=== PATIENT | male | born 1990 | race Caucasian/White ===

== ENCOUNTER 2017-06-11 23:42 | Inpatient (IN) ==
--- NOTE | 2017-06-12 00:01 | Emergency Department Note ---
Disposition Clinical Impression: Atrial fibrillation with RVR, Chest pain, Light headedness, Hypotension, Elevated troponin I level Disposition: Admitted As Inpatient Condition: Fair General Adult HPI - General Chief complaint: ED Chest Pain Stated complaint: CP/bradycardia Time Seen by Provider: 06/12/17 00:00 Source: patient Limitations: no limitations Nursing Notes Reviewed: Yes Vital Signs Reviewed: Yes - History of Present Illness Pain Scale: 7 - Related Data Home Medications Medication Instructions Recorded Confirmed Metoprolol [Lopressor] 50 mg PO BID 06/12/17 06/12/17 Allergies Allergy/AdvReac Type Severity Reaction Status Date / Time No Known Allergies Allergy Verified 10/13/16 10:50 Past Medical History - Past Medical History Medical history: Reports: no medical history Surgical history: Reports: no surgical history Psychiatric history: Reports: no psych history - Social History Smoking Status: Current every day smoker Smokeless Tobacco Status: No Alcohol use: Reports: occasionally Drug use: Reports: none Physical Exam - General Limitations: no limitations General appearance: alert Course - Reevaluation(s) Reevaluation #1: Saw patient with Dr. Alvarez. This is a 26 year-old male with history of heart problem (?LVH) who presents with palpitations and central chest pressure that began when he had to sprint at work this afternoon at 14:15. Since then, he has continued to have chest pressure, "fluttering" in his chest, and exertional dyspnea. He underwent cardiac workup a couple of months ago, including cardiac echo and cardiac CT, and he was started on metoprolol. He denies any history of AF. On exam, patient is comfortable-appearing. Heart irreg irreg, BP stable. Plan chest pain workup, diltiazem for rate control, consult cardiology. Time: 00:30 Reevaluation #2: Elevated troponin noted. Will consult cardiology. Time: 01:50 Vital Signs Temperature 97.3 F L 06/11/17 23:45 Pulse Rate 140 06/11/17 23:45 Respiratory Rate 20 06/11/17 23:45 Blood Pressure 122/87 06/11/17 23:45 O2 Sat by Pulse Oximetry 97 06/11/17 23:45 Temperature 98.4 F 06/12/17 05:05 Pulse Rate 104 06/12/17 05:05 Respiratory Rate 19 06/12/17 05:05 Blood Pressure 103/92 06/12/17 05:05 O2 Sat by Pulse Oximetry 97 06/12/17 05:05 Oxygen Delivery Oxygen Delivery Room Air Medical Decision Making - Lab Data Lab results reviewed: Yes I reviewed the patient's lab results. Result diagrams: 06/12/17 00:11 06/12/17 00:00 Lab Results 06/12/17 06/12/17 06/12/17 Range/Units 00:00 00:01 00:11 WBC 16.5 H (4.3-11.1) K/mcL RBC 5.09 (4.19-5.50) M/mcL Hgb 15.6 (12.9-16.9) g/dL Hct 43.6 (37.5-50.1) % MCV 85.7 (83.0-100.0) fL MCH 30.6 (28.0-33.3) pg MCHC 35.8 H (31.6-35.5) g/dL RDW 12.2 (11.5-14.5) % Plt Count 220 (140-400) K/mcL MPV 10.7 (9.4-12.4) fL Immature Gran % 0.3 (0-4) % Seg Neutrophils % 61.8 % Lymphocytes % 29.8 % Monocytes % 6.2 % Eosinophils % 1.4 % Basophils % 0.5 % Neutrophils # 10.2 H (1.6-8.9) K/mcL Lymphocytes # 4.9 H (0.6-4.6) K/mcL Monocytes # 1.0 (0.0-1.3) K/mcL Eosinophils # 0.2 (0.0-0.6) K/mcL Basophils # 0.1 (0.0-0.2) K/mcL Immature Plt Fraction 7.9 H (1.1-6.1) % PT 11.2 (9.4-12.1) Seconds INR 1.0 APTT 31.1 (26.0-36.0) Seconds Sodium 137 (136-145) mEq/L Potassium 3.8 (3.5-5.1) mEq/L Chloride 106 (98-107) mEq/L Carbon Dioxide 21 L (23-29) mEq/L BUN 20 (6-20) mg/dL Creatinine 1.22 (0.70-1.30) mg/dL Est GFR ( Amer) > 60 (> 60) Est GFR (Non-Af Amer) > 60 (> 60) BUN/Creatinine Ratio 16 (6-26) Glucose 110 H (70-105) mg/dL Calculated Osmolality 287 (280-300) Calcium 9.6 (8.6-10.3) mg/dL Troponin I 1.30 H* (< 0.04) ng/mL TSH 4.862 (0.340-5.600) mcIU/mL Urine Opiates Screen (Swegmo=270) ng/mL Ur Barbiturates Screen (Ajheqo=809) ng/mL Ur Phencyclidine Scrn (Cutoff=25) ng/mL Ur Amphetamines Screen (Kwibbm=7721) ng/mL U Benzodiazepines Scrn (Yblnvi=470) ng/mL Urine Cocaine Screen (Cutoff= 300) ng/mL U Marijuana (THC) Screen (Cutoff = 50) ng/mL 06/12/17 Range/Units 01:02 WBC (4.3-11.1) K/mcL RBC (4.19-5.50) M/mcL Hgb (12.9-16.9) g/dL Hct (37.5-50.1) % MCV (83.0-100.0) fL MCH (28.0-33.3) pg MCHC (31.6-35.5) g/dL RDW (11.5-14.5) % Plt Count (140-400) K/mcL MPV (9.4-12.4) fL Immature Gran % (0-4) % Seg Neutrophils % % Lymphocytes % % Monocytes % % Eosinophils % % Basophils % % Neutrophils # (1.6-8.9) K/mcL Lymphocytes # (0.6-4.6) K/mcL Monocytes # (0.0-1.3) K/mcL Eosinophils # (0.0-0.6) K/mcL Basophils # (0.0-0.2) K/mcL Immature Plt Fraction (1.1-6.1) % PT (9.4-12.1) Seconds INR APTT (26.0-36.0) Seconds Sodium (136-145) mEq/L Potassium (3.5-5.1) mEq/L Chloride (98-107) mEq/L Carbon Dioxide (23-29) mEq/L BUN (6-20) mg/dL Creatinine (0.70-1.30) mg/dL Est GFR ( Amer) (> 60) Est GFR (Non-Af Amer) (> 60) BUN/Creatinine Ratio (6-26) Glucose (70-105) mg/dL Calculated Osmolality (280-300) Calcium (8.6-10.3) mg/dL Troponin I (< 0.04) ng/mL TSH (0.340-5.600) mcIU/mL Urine Opiates Screen Negative (Mdgzjt=139) ng/mL Ur Barbiturates Screen Negative (Bwvlyk=122) ng/mL Ur Phencyclidine Scrn Negative (Cutoff=25) ng/mL Ur Amphetamines Screen Negative (Knejzt=5627) ng/mL U Benzodiazepines Scrn Negative (Gwqpds=519) ng/mL Urine Cocaine Screen Negative (Cutoff= 300) ng/mL U Marijuana (THC) Screen Negative (Cutoff = 50) ng/mL - Radiology Data Radiology results reviewed: Yes I reviewed the patient's radiology results. CXR IMPRESSION: No acute process. - EKG Data EKG #1 EKG attestation: Yes I reviewed and interpreted this EKG. EKG results narrative: AF/RVR at 131.
[2017-06-12] MEDS ORDERED: 0.9 % Sodium Chloride 1,000 ML IVC ONE ×3 (00:07→04:39)
[2017-06-12] MEDS ORDERED: Aspirin 81 MG TAB.CHEW PO STA (00:09)
[2017-06-12 00:14] LABS: Basophils # 0.1 K/mcL (0.0-0.2); Basophils % 0.5 %; Eosinophils # 0.2 K/mcL (0.0-0.6); Eosinophils % 1.4 %; Hematocrit 43.6 % (37.5-50.1); Hemoglobin 15.6 g/dL (12.9-16.9); Immature Granulocytes % 0.3 % (0-4); Immature Platelets 7.9 % (1.1-6.1); Lymphocytes # 4.9 K/mcL (0.6-4.6); Lymphocytes % 29.8 %; Mean Corpuscular HGB Conc 35.8 g/dL (31.6-35.5); Mean Corpuscular Hemoglobin 30.6 pg (28.0-33.3); Mean Corpuscular Volume 85.7 fL (83.0-100.0); Mean Platelet Volume 10.7 fL (9.4-12.4); Monocytes % 6.2 %; Neutrophils # 10.2 K/mcL (1.6-8.9); Platelet Count 220 K/mcL (140-400); Red Blood Count 5.09 M/mcL (4.19-5.50); Red Cell Distribution Width 12.2 % (11.5-14.5); Segmented Neutrophils % 61.8 %
[2017-06-12 00:19] LABS: Prothrombin Time 11.2 Seconds (9.4-12.1)
[2017-06-12 00:22] LABS: Activated Partial Thrombo Time 31.1 Seconds (26.0-36.0)
--- NOTE | 2017-06-12 00:36 | Emergency Department Note ---
Disposition Forms: ED Satisfaction Letter General Adult HPI - General Chief complaint: ED Chest Pain Stated complaint: CP/bradycardia Time Seen by Provider: 06/12/17 00:00 Source: patient Limitations: no limitations Nursing Notes Reviewed: Yes - History of Present Illness Pain Scale: 7 - Related Data Previous Rx's Medication Instructions Recorded Ketoconazole 2% CRM [Nizoral Cream] 1 appl TP BID #2 tube 10/13/16 Permethrin CRM [Elimite] 1 appl TP ONCE #1 tube 10/13/16 Allergies Allergy/AdvReac Type Severity Reaction Status Date / Time No Known Allergies Allergy Verified 10/13/16 10:50 Past Medical History - Past Medical History Medical history: Reports: no medical history Surgical history: Reports: no surgical history Psychiatric history: Reports: no psych history - Social History Smoking Status: Current every day smoker Smokeless Tobacco Status: No Alcohol use: Reports: occasionally Drug use: Reports: none Physical Exam - General Limitations: no limitations General appearance: alert Course - Reevaluation(s) Reevaluation #1: Saw patient with Dr. Alvarez. This is a 26 year-old male with history of heart problem (?LVH) who presents with palpitations and central chest pressure that began when he had to sprint at work this Time: 00:34 Vital Signs Temperature 97.3 F L 06/11/17 23:45 Pulse Rate 140 06/11/17 23:45 Respiratory Rate 20 06/11/17 23:45 Blood Pressure 122/87 06/11/17 23:45 O2 Sat by Pulse Oximetry 97 06/11/17 23:45 Temperature 97.3 F L 06/11/17 23:45 Pulse Rate 140 06/11/17 23:45 Respiratory Rate 20 06/11/17 23:45 Blood Pressure 122/87 06/11/17 23:45 O2 Sat by Pulse Oximetry 97 06/11/17 23:45 Oxygen Delivery Oxygen Delivery Room Air Medical Decision Making - Lab Data Result diagrams: 06/12/17 00:11 Lab Results 06/12/17 06/12/17 Range/Units 00:01 00:11 WBC 16.5 H (4.3-11.1) K/mcL RBC 5.09 (4.19-5.50) M/mcL Hgb 15.6 (12.9-16.9) g/dL Hct 43.6 (37.5-50.1) % MCV 85.7 (83.0-100.0) fL MCH 30.6 (28.0-33.3) pg MCHC 35.8 H (31.6-35.5) g/dL RDW 12.2 (11.5-14.5) % Plt Count 220 (140-400) K/mcL MPV 10.7 (9.4-12.4) fL Immature Gran % 0.3 (0-4) % Seg Neutrophils % 61.8 % Lymphocytes % 29.8 % Monocytes % 6.2 % Eosinophils % 1.4 % Basophils % 0.5 % Neutrophils # 10.2 H (1.6-8.9) K/mcL Lymphocytes # 4.9 H (0.6-4.6) K/mcL Monocytes # 1.0 (0.0-1.3) K/mcL Eosinophils # 0.2 (0.0-0.6) K/mcL Basophils # 0.1 (0.0-0.2) K/mcL Immature Plt Fraction 7.9 H (1.1-6.1) % PT 11.2 (9.4-12.1) Seconds INR 1.0 APTT 31.1 (26.0-36.0) Seconds
--- NOTE | 2017-06-12 01:14 | Emergency Department Note ---
Disposition Clinical Impression: Atrial fibrillation with RVR, Light headedness, Elevated troponin I level Chest pain Qualifiers: Chest pain type: unspecified Qualified Code(s): R07.9 - Chest pain, unspecified Hypotension Qualifiers: Hypotension type: unspecified hypotension type Qualified Code(s): I95.9 - Hypotension, unspecified Disposition: Admitted As Inpatient Condition: Fair [facility]: [facility]Primary Care Provider[facility] - Forms: ED Satisfaction Letter Time of Disposition: 05:03 Chest Pain HPI - General Chief Complaint: ED Chest Pain Stated Complaint: CP/bradycardia Time Seen by Provider: 06/12/17 00:00 Source: patient Limitations: no limitations Vital Signs Reviewed: Yes Nursing Notes Reviewed: Yes - History of Present Illness HPI Narrative: 18-year-old male complains of mid substernal chest pressure with radiation to his left shoulder and neck that started approximately 1415 hrs. today while at work. 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 After running he states he started feeling lightheaded and felt like his heart was flip-flopping in his chest. Patient states the sensation continued to persist for several hours after which he came to the emergency department. Patient states pain is rated at a 7/10 in intensity. Constant in nature. Nothing has made it better. Activity makes it worse. Also complains of nausea. Patient states he sees Dr. Devine of cardiology for abnormal heart wall thickening metoprolol. Patient denies history of prior chest pain episode today. Severity scale (1-10): 7 - Related Data Home Medications Medication Instructions Recorded Confirmed Metoprolol [Lopressor] 50 mg PO BID 06/12/17 06/12/17 Allergies Allergy/AdvReac Type Severity Reaction Status Date / Time No Known Allergies Allergy Verified 10/13/16 10:50 All systems ED: reviewed and negative except as stated. Review of Systems: As Per HPI Constitutional: Reports: fever. Denies: chills, weakness Cardiovascular: Reports: chest pain, palpitations Respiratory: Reports: dyspnea. Denies: cough Gastrointestinal: Reports: nausea. Denies: abdominal pain, vomiting, diarrhea Neurological: Denies: headache Psychiatric: Denies: anxiety Endocrine: Reports: fatigue Chest Pain PMH - Past Medical History Medical history: Reports: no medical history Surgical history: Reports: no surgical history Psychiatric history: Reports: no psych history - Social History Smoking Status: Current every day smoker Alcohol use: Reports: occasionally Drug use: Reports: none Physical Exam Vital Signs Temperature 97.3 F L 06/11/17 23:45 Pulse Rate 140 06/11/17 23:45 Respiratory Rate 20 06/11/17 23:45 Blood Pressure 122/87 06/11/17 23:45 O2 Sat by Pulse Oximetry 97 06/11/17 23:45 Temperature 97.3 F L 06/11/17 23:45 Pulse Rate 140 06/11/17 23:45 Respiratory Rate 20 06/11/17 23:45 Blood Pressure 122/87 06/11/17 23:45 O2 Sat by Pulse Oximetry 97 06/11/17 23:45 Oxygen Delivery Oxygen Delivery Room Air CONSTITUTIONAL: Well-appearing; well-nourished; A&O X 3, in no apparent distress HEAD: Normocephalic; atraumatic EYES: PERRL, no scleral icterus NOSE: The nose is normal in appearance without rhinorrhea NECK: No JVD or distended neck veins RESP: Normal chest excursion with respiration; breath sounds clear and equal bilaterally; no wheezes, rhonchi, or rales CARD: Irregular rhythm, no rubs murmurs or gallops. ABD: Non-distended; non-tender, soft, without rigidity, rebound or guarding,no pulsatile mass CHEST: No pain with palpation SKIN: Normal for age and race; warm and dry without diaphoresis ; no apparent lesions EXTREMITIES: Pulses are 2 plus and equal times 4 extremities, no peripheral edema or calf muscle pain - General Limitations: no limitations General appearance: alert Course - Reevaluation(s) Reevaluation #1: Blood pressure recheck 104/85 after 1 L fluid. Another liter ordered. Since patient's blood pressure will appears that it may not tolerate Cardizem will switched to Lopressor 5 mg IV since patient is on metoprolol at home 50 mg twice a day. Time: 01:21 Reevaluation #2: Troponin resulted 1.30 Time: 01:41 Reevaluation #3: TSH normal. Ordered CTA chest to rule out PE with patient's new onset A. fib and elevated troponin of 1.3 patient is currently rate controlled for his A. fib. Heart rate currently between 80s and 10 9 bpm. Time: 02:17 - Consultations Consultation #1: Dr. Morgan of cardiology was consult it and updated on patient's condition. Recommends admission and they will see the patient in consult. Time: 02:36 Consultation #2: Dr. Quinteros of [facility] was called to update on the patient's status of new onset A. fib RVR. Merlin and was scheduled to have MRI of the heart performed for possible ablation. They recommended the patient be followed with cardiology here to assess coronaries given A. fib RVR and elevation of troponin 1.3. After which, patient can resume outpatient evaluation with MR for cardiac ablation. Time: 04:00 Vital Signs Temperature 97.3 F L 06/11/17 23:45 Pulse Rate 140 06/11/17 23:45 Respiratory Rate 20 06/11/17 23:45 Blood Pressure 122/87 06/11/17 23:45 O2 Sat by Pulse Oximetry 97 06/11/17 23:45 Temperature 97.3 F L 06/11/17 23:45 Pulse Rate 140 06/11/17 23:45 Respiratory Rate 20 06/11/17 23:45 Blood Pressure 122/87 06/11/17 23:45 O2 Sat by Pulse Oximetry 97 06/11/17 23:45 Oxygen Delivery Oxygen Delivery Room Air Chest Pain - MDM Narrative Medical decision making narrative: A. fib RVR with chest pain. A few RVR new-onset. Patient was borderline hypotensive and given fluid bolus liter that had no effect on the patient's blood pressure. Consider giving Cardizem gave her Lopressor 5 mg IV. Patient became rate controlled between 80s to 107 bpm. Patient's chest pain persisted along with symptoms of lightheadedness and shortness of breath so patient was sent for CTA of the chest to rule out PE. No PE was identified on CTA of the chest. No pneumonia seen on chest x-ray or CT. Heart score 5, and cardiology was consulted. I spoke to Dr. Morgan who recommends admission to medicine and they will see the patient in consult. Patient's currently rate controlled and pain-free 0/10. Patient agrees to treatment plan for inpatient treatment and cardiology follow-up. Dr. Kramer the hospitalist as accepted patient for admission to , patient is started on low-dose heparin. - Medical Records Echo taken 02/18/2017 Impressions: Per cardiology LVEF 60-65%. Moderate asymmetric septal hypertrophy. Normal left ventricular diastolic function. Normal right ventricular structure and function. 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 There is a resting LVOT obstruction, Max PG 22 mmHg. No pulmonary hypertension. Recommend clinical correlation. - Lab Data Lab results reviewed: Yes I reviewed the patient's lab results. Lab results narrative: Short CBC 06/12/17 Range/Units 00:11 WBC 16.5 H (4.3-11.1) K/mcL Hgb 15.6 (12.9-16.9) g/dL Hct 43.6 (37.5-50.1) % Plt Count 220 (140-400) K/mcL Neutrophils # 10.2 H (1.6-8.9) K/mcL BMP 06/12/17 Range/Units 00:00 Sodium 137 (136-145) mEq/L Potassium 3.8 (3.5-5.1) mEq/L Chloride 106 (98-107) mEq/L Carbon Dioxide 21 L (23-29) mEq/L BUN 20 (6-20) mg/dL Creatinine 1.22 (0.70-1.30) mg/dL Glucose 110 H (70-105) mg/dL Calcium 9.6 (8.6-10.3) mg/dL Cardiac Enzymes 06/12/17 Range/Units 00:00 Troponin I 1.30 H* (< 0.04) ng/mL Result diagrams: 06/12/17 00:11 06/12/17 00:00 Lab Results 06/12/17 06/12/17 06/12/17 Range/Units 00:00 00:01 00:11 WBC 16.5 H (4.3-11.1) K/mcL RBC 5.09 (4.19-5.50) M/mcL Hgb 15.6 (12.9-16.9) g/dL Hct 43.6 (37.5-50.1) % MCV 85.7 (83.0-100.0) fL MCH 30.6 (28.0-33.3) pg MCHC 35.8 H (31.6-35.5) g/dL RDW 12.2 (11.5-14.5) % Plt Count 220 (140-400) K/mcL MPV 10.7 (9.4-12.4) fL Immature Gran % 0.3 (0-4) % Seg Neutrophils % 61.8 % Lymphocytes % 29.8 % Monocytes % 6.2 % Eosinophils % 1.4 % Basophils % 0.5 % Neutrophils # 10.2 H (1.6-8.9) K/mcL Lymphocytes # 4.9 H (0.6-4.6) K/mcL Monocytes # 1.0 (0.0-1.3) K/mcL Eosinophils # 0.2 (0.0-0.6) K/mcL Basophils # 0.1 (0.0-0.2) K/mcL Immature Plt Fraction 7.9 H (1.1-6.1) % PT 11.2 (9.4-12.1) Seconds INR 1.0 APTT 31.1 (26.0-36.0) Seconds Sodium 137 (136-145) mEq/L Potassium 3.8 (3.5-5.1) mEq/L Chloride 106 (98-107) mEq/L Carbon Dioxide 21 L (23-29) mEq/L BUN 20 (6-20) mg/dL Creatinine 1.22 (0.70-1.30) mg/dL Est GFR ( Amer) > 60 (> 60) Est GFR (Non-Af Amer) > 60 (> 60) BUN/Creatinine Ratio 16 (6-26) Glucose 110 H (70-105) mg/dL Calculated Osmolality 287 (280-300) Calcium 9.6 (8.6-10.3) mg/dL Troponin I 1.30 H* (< 0.04) ng/mL TSH 4.862 (0.340-5.600) mcIU/mL Urine Opiates Screen (Hwfwjd=792) ng/mL Ur Barbiturates Screen (Xcsgco=776) ng/mL Ur Phencyclidine Scrn (Cutoff=25) ng/mL Ur Amphetamines Screen (Aorodu=2884) ng/mL U Benzodiazepines Scrn (Ppdbbl=422) ng/mL Urine Cocaine Screen (Cutoff= 300) ng/mL U Marijuana (THC) Screen (Cutoff = 50) ng/mL 06/12/17 Range/Units 01:02 WBC (4.3-11.1) K/mcL RBC (4.19-5.50) M/mcL Hgb (12.9-16.9) g/dL Hct (37.5-50.1) % MCV (83.0-100.0) fL MCH (28.0-33.3) pg MCHC (31.6-35.5) g/dL RDW (11.5-14.5) % Plt Count (140-400) K/mcL MPV (9.4-12.4) fL Immature Gran % (0-4) % Seg Neutrophils % % Lymphocytes % % Monocytes % % Eosinophils % % Basophils % % Neutrophils # (1.6-8.9) K/mcL Lymphocytes # (0.6-4.6) K/mcL Monocytes # (0.0-1.3) K/mcL Eosinophils # (0.0-0.6) K/mcL Basophils # (0.0-0.2) K/mcL Immature Plt Fraction (1.1-6.1) % PT (9.4-12.1) Seconds INR APTT (26.0-36.0) Seconds Sodium (136-145) mEq/L Potassium (3.5-5.1) mEq/L Chloride (98-107) mEq/L Carbon Dioxide (23-29) mEq/L BUN (6-20) mg/dL Creatinine (0.70-1.30) mg/dL Est GFR ( Amer) (> 60) Est GFR (Non-Af Amer) (> 60) BUN/Creatinine Ratio (6-26) Glucose (70-105) mg/dL Calculated Osmolality (280-300) Calcium (8.6-10.3) mg/dL Troponin I (< 0.04) ng/mL TSH (0.340-5.600) mcIU/mL Urine Opiates Screen Negative (Nhjiix=029) ng/mL Ur Barbiturates Screen Negative (Zrvqmr=394) ng/mL Ur Phencyclidine Scrn Negative (Cutoff=25) ng/mL Ur Amphetamines Screen Negative (Nehtgl=9540) ng/mL U Benzodiazepines Scrn Negative (Zjdobv=174) ng/mL Urine Cocaine Screen Negative (Cutoff= 300) ng/mL U Marijuana (THC) Screen Negative (Cutoff = 50) ng/mL - Radiology Data Radiology results reviewed: Yes I reviewed the patient's radiology results. Chest X-Ray 06/12/17 00:01 IMPRESSION: No acute process. D/ / Hernando Barrow MD / Hernando Barrow MD Interpreting Provider: Hernando Barrow MD Chest CTA 06/12/17 02:15 IMPRESSION: No evidence of pulmonary embolism or acute pulmonary abnormality. D/ / Kaden Dixon MD / Kaden Dixon MD Interpreting Provider: Kaden Dixon MD - EKG Data EKG attestation: Yes I reviewed and interpreted this EKG. EKG results narrative: EKG 1: A. fib RVR at a rate of 1 EKG 2: Taken 06/11/2017 at 2340 hrs. shows A. fib RVR at a rate of 133 beats minute with no acute ST elevations or depressions in any leads. No signs of ischemia or A. fib seen on previous EKG taken 08/24/2016 EKG 3 take in 06/12/2017 that 0140 hrs. shows A. fib at a rate of 124 A. fib RVR with no change from previous morphology on previous EKGs. Heart Score - Score History: Moderately Suspicious EKG: Non Specific repolarisation Disturbance Age: Less than 45 Risk Factors: 1-2 risk factors Troponin: Greater than 3x normal limit HEART Score Total: 5
[2017-06-12] MEDS ORDERED: *HR* Metoprolol 5 MG/5 ML VIAL IVP ONE (01:26)
[2017-06-12 01:29] LABS: BUN/Creatinine Ratio 16 (6-26); Blood Urea Nitrogen 20 mg/dL (6-20); Calcium 9.6 mg/dL (8.6-10.3); Carbon Dioxide 21 mEq/L (23-29); Chloride 106 mEq/L (98-107); Glucose 110 mg/dL (70-105); Osmolality,Calculated 287 (280-300); Potassium 3.8 mEq/L (3.5-5.1); Sodium 137 mEq/L (136-145); eGFR For African Americans > 60 (> 60); eGFR For Non-African Americans > 60 (> 60)
[2017-06-12 01:42] LABS: Thyroid Stimulating Hormone 4.862 mcIU/mL (0.340-5.600)
[2017-06-12 02:32] LABS: Amphetamine Screen,Urine Negative ng/mL (Cutoff=1000); Barbiturate Screen,Urine Negative ng/mL (Cutoff=200); Benzodiazepines Screen,Urine Negative ng/mL (Cutoff=200); Cannabinoid Screen,Urine Negative ng/mL (Cutoff = 50); Cocaine Screen,Urine Negative ng/mL (Cutoff= 300); Opiate Screen,Urine Negative ng/mL (Cutoff=300); Phencyclidine Screen,Urine Negative ng/mL (Cutoff=25)
[2017-06-12] MEDS ORDERED: *HR* Heparin 5,000 UNIT/ML VIAL IVP ONE (03:01)
[2017-06-12] MEDS ORDERED: *HR* Heparin 5,000 UNIT/ML VIAL IVP PRN (03:01)
[2017-06-12] MEDS: Heparin 25,000 UNIT/500 ML D5W 25,000 UNIT/500 ML BAG IVC SCH (03:12)
[2017-06-12] MEDS ORDERED: Naloxone 0.4 MG/ML INJ IVP PRN (03:57)
[2017-06-12] MEDS ORDERED: Acetaminophen 325 MG TABLET PO PRN (03:57)
--- NOTE | 2017-06-12 04:29 | Internal Med History&Physical ---
<Denilson Garcia Nelida - Last Filed: 06/12/17 04:18> Date of Encounter: 06/12/17 Time of Encounter: 03:40 Assessment and Plan (1) Atrial fibrillation with RVR Current visit: Yes Status: Acute New onset A. fib. Patient reports he has never had A. fib before. Initial HR 140s. Likely related to HOCM. Due to lower blood pressure (80's/60's) Lopressor 5mg IV was given rather than Cardizem. Now rate controlled HR 90-100's EKG showed A. fib with RVR with a rate of 133, with no ST elevations or depressions Chest pain persisted during ED evaluation, but had resolved upon my assessment TSH 4.862 within normal limits. CBC shows leukocytosis at 16, no anemia. BMP unremarkable. UDS negative. CXR shows no acute process. We will place patient on PO metoprolol 50 mg BID with hold parameters for SBP < 100. Continuous telemetry. Consult cardiology for further recommendations - ED discussed the case with cardiology and they will evaluate the patient in the morning - Also discussed the case with [place] cardiology as the patient was to have a cardiac MRI conducted there. They recommended evaluation by cardiology here and then probable outpatient cardiac MRI (2) Elevated troponin Current visit: Yes Status: Acute Troponin 1.30. No ischemic changes noted on EKG. Etiology likely related to new onset A. fib with RVR. Chest pain now resolved. CTA shows no evidence of pulmonary embolism or acute pulmonary abnormality. Trend troponins 3. Continuous telemetry. Continue low-dose heparin drip. Appreciate further recommendations per cardiology. (3) Hypertrophic obstructive cardiomyopathy (HOCM) Current visit: Yes Status: Acute Echo 02/18/17: EF 60-65%, with moderate asymmetric septal hypertrophy. Normal LV diastolic function. Normal RV structure and function. Mildly thickened myxomatous mitral valve with systolic anterior motion of the anterior leaflet mitral valve and mild mitral regurgitation. LVOT obstruction. These findings in combination with a history of psoriasis, raise concern the patient's presentation could be a result of an inflammatory disorder. With worsening symptoms, new A. fib, and elevated troponin - will obtain new echocardiogram (4) DVT prophylaxis Current visit: Yes Status: Acute On heparin drip Internal Medicine - H&P: HPI Chief complaint: Chest pain Admitted From: Emergency Dept History of present illness: Mr. Velazquez is a 26 year old male with PMH of hypertrophic obstructive cardiomyopathy, presented to the emergency department with central chest pain radiating to left shoulder and neck. 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 At that time he also developed lightheadedness, palpitations, nausea, dyspnea. These symptoms were constant and lasted several hours. Now his chest pain has resolved. He also reports that he frequently is dyspnea on exertion, fatigue and orthopnea at times. Denies recent illness, syncope, falls, pleuritic chest pain, or lower extremity edema. He has had intermittent chest pain, palpitations, dyspnea in the past and has been evaluated in the emergency department. Once requiring admission for pericarditis in 2014, with normal echo at that time. Previous event monitor showed no evidence. He had not been following up with cardiology , until March 2017 and was started on metoprolol 100 mg twice a day. Currently he is waiting to have a cardiac MRI [place]. Of note he also has psoriasis of scaly skin changes, and his comfort reports that she thinks he may have inflammatory bowel disease because he has intermittent periods of diarrhea or constipation. He denies other symptoms now. Denies fevers, chills, abdominal pain, vomiting, change in bowels, hematochezia, melena, dysuria, hematuria, or leg pain. Past Med Surg Social Fam HX - Past Medical History Medical history: no medical history Psychiatric history: no psych history - Past Surgical History Surgical History: no surgical history - Social History Smoking Status: Current every day smoker Smokeless Tobacco Status: No Alcohol use: occasionally Drug use: none - Family History Mother Adopted: No Family Member Ethnicity: Non- Living Status: Still Living Hx Family Cardiac Disorders: Yes (Hypertension) Hx Family Respiratory Disorders: No Hx Family Cancer: No Hx Family GI Disorders: No Hx Family Endocrine Disorder: Yes (Diabetes) Hx Family Neuromuscular Disorders: No Hx Family Neurologic Disorders: No Hx Family HEENT Disorders: No Hx Family Autoimmune Disorders: No Sister Adopted: No Family Member Ethnicity: Non- Living Status: Still Living Hx Family Cardiac Disorders: No Hx Family Respiratory Disorders: No Hx Family Cancer: No Hx Family GI Disorders: No Hx Family Endocrine Disorder: No Hx Family Neuromuscular Disorders: No Hx Family Neurologic Disorders: No Hx Family HEENT Disorders: No Hx Family Autoimmune Disorders: No Brother Adopted: No Family Member Ethnicity: Non- Living Status: Still Living Hx Family Cardiac Disorders: No Hx Family Respiratory Disorders: No Hx Family Cancer: No Hx Family GI Disorders: No Hx Family Endocrine Disorder: No Hx Family Neuromuscular Disorders: No Hx Family Neurologic Disorders: No Hx Family HEENT Disorders: No Hx Family Autoimmune Disorders: No Internal Medicine - H&P: Meds Metoprolol [Lopressor] 50 mg PO BID 06/12/17 [History] 3 Allergy/AdvReac Type Severity Reaction Status Date / Time No Known Allergies Allergy Verified 10/13/16 10:50 All Systems PM: A 10-system review of systems was performed and is negative for pertinent findings except as documented above in the HPI. - Constitutional Vitals: Temp Pulse Resp BP Pulse Ox 97.3 F L 140 20 122/87 97 06/11/17 23:45 06/11/17 23:45 06/11/17 23:45 06/11/17 23:45 06/11/17 23:45 General appearance: Present: A&O X 3, no acute distress - Head Head exam: Present: atraumatic, normocephalic - Eye Eye exam: Present: EOMI, PERRL, conjuntiva pink, sclera anicteric - Neck Neck exam general surgery: Present: supple, trachea midline. Absent: lymphadenopathy - Respiratory Respiratory exam: Present: CTAB. Absent: accessory muscle use, rales, rhonchi, wheezes - Cardiovascular Cardiovascular exam: Present: irregular rhythm, +S1, +S2, systolic murmur. Absent: diastolic murmur - GI/Abdominal GI/Abdominal exam: Present: normal bowel sounds, soft, no peritoneal signs. Absent: distended, tenderness - Extremities Exam Extremities exam: Present: normal capillary refill, warm, radial pulses palpable and symmetrical. Absent: calf tenderness, cyanotic, pedal edema - Neurological Exam Neurological exam: Present: CN II-XII intact, oriented X3, no focal deficits. Absent: facial droop, speech deficit - Skin Skin exam: Present: dry, intact, rash (Psoriatic appearing plaques on bilateral lower extremities). Absent: cyanosis, diaphoretic Internal Med - H&P Results - Labs CBC & Chem 7: 06/12/17 00:11 06/12/17 00:00 Labs: Short CBC 06/12/17 Range/Units 00:11 WBC 16.5 H (4.3-11.1) K/mcL Hgb 15.6 (12.9-16.9) g/dL Hct 43.6 (37.5-50.1) % Plt Count 220 (140-400) K/mcL Neutrophils # 10.2 H (1.6-8.9) K/mcL BMP 06/12/17 00:00 Sodium 137 Potassium 3.8 Chloride 106 Carbon Dioxide 21 L BUN 20 Creatinine 1.22 Glucose 110 H Calcium 9.6 Cardiac Enzymes 06/12/17 Range/Units 00:00 Troponin I 1.30 H* (< 0.04) ng/mL - Impressions ITS Impressions Chest X-Ray 06/12/17 00:01 IMPRESSION: No acute process. D/ / Hernando Barrow MD / Hernando Barrow MD Interpreting Provider: Hernando Barrow MD Chest CTA 06/12/17 02:15 IMPRESSION: No evidence of pulmonary embolism or acute pulmonary abnormality. D/ / Kaden Dixon MD / Kaden Dixon MD Interpreting Provider: Kaden Dixon MD <Markos Gonsalez - Last Filed: 06/12/17 05:56> Date of Encounter: 06/12/17 Internal Medicine - H&P: HPI History of present illness: Mr. Velazquez is a 26 year old male All Systems PM: A 10-system review of systems was performed and is negative for pertinent findings except as documented above in the HPI. - Constitutional Vitals: Temp Pulse Resp BP Pulse Ox 98.4 F 104 19 103/92 97 06/12/17 05:05 06/12/17 05:05 06/12/17 05:05 06/12/17 05:05 06/12/17 05:05 Internal Med - H&P Results - Labs CBC & Chem 7: 06/12/17 00:11 06/12/17 00:00 - Attending Attestation I examined this patient and my medical decision-making was reviewed with the Resident Physician Dr. Garcia. I agree with the documented findings, disposition and treatment plan as described except to the extent set forth below. Mr. Velazquez is a 26 year old male with PMH of hypertrophic obstructive cardiomyopathy, presented to the emergency department with central chest pain radiating to left shoulder and neck. He did have palpitations too. Here in the ER he does have A fib with RVR HR in 140's intiaillly. Lopressor 5mg given, now HR in 100's. He denied any active CP now. Gen: A,A, O 3 Chest: Diminished BS b/l basal region, no crackles Heart: S1S2+ Irregular rate and rythm A/P 1. Acute New onset A fib with RVR mostly due to HOCM May need cardiac ablation will cont Metoprolol for now CHADSVASC score 0 recommend ASA for anti coag 2. Acute initial NSTEMI Elevated Trop @ 1.3 mostly due to Afib RVR Started on Heparin gtt Card consulted 3. 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 Beni Irvin from [facility] who suggested to keep the pt here and control his Afib. They still wanted to do MRI of Heart as an out pt
[2017-06-12] MEDS ORDERED: 0.9 % Sodium Chloride 1,000 ML ONE (04:39)
[2017-06-12 06:27] LABS: Alanine Aminotransferase 92 Units/L (7-52); Albumin/Globulin Ratio 1.7 (1.1-2.2); Alkaline Phosphatase 67 Units/L (34-104); Aspartate Amino Transferase 57 Units/L (13-39); BUN/Creatinine Ratio 16 (6-26); Bilirubin,Total 0.6 mg/dL (0.3-1.0); Blood Urea Nitrogen 16 mg/dL (6-20); Calcium 8.6 mg/dL (8.6-10.3); Carbon Dioxide 21 mEq/L (23-29); Chloride 111 mEq/L (98-107); Chol/HDL Ratio 4.4 (0-4.9); Cholesterol 137 mg/dL (< 200); Globulin 2.3 g/dL (2.4-3.5); Glucose 87 mg/dL (70-105); HDL Cholesterol 31 mg/dL (40-59); LDL Cholesterol,Calculated 64 mg/dL (0-99); Osmolality,Calculated 287 (280-300); Potassium 3.6 mEq/L (3.5-5.1); Sodium 138 mEq/L (136-145); Total Protein 6.3 g/dL (6.4-8.9); Triglycerides 210 mg/dL (< 150); eGFR For African Americans > 60 (> 60); eGFR For Non-African Americans > 60 (> 60)
[2017-06-12 06:33] LABS: Troponin I 2.88 ng/mL (< 0.04)
[2017-06-12] MEDS: Aspirin Enteric Coated 81 MG Tablet PO SCH (08:42)
[2017-06-12] MEDS ORDERED: 0.9 % Sodium Chloride 250 ML IVC PRN (09:06)
[2017-06-12] MEDS ORDERED: 0.9 % Sodium Chloride 1,000 ML IVC SCH (09:15)
--- NOTE | 2017-06-12 09:49 | Cardiology Consult Note ---
<Mikey Mejia - Last Filed: 06/12/17 09:45> Date of Encounter: 06/12/17 Time of Encounter: 09:30 Assessment and Plan (1) Atrial fibrillation with RVR Current Visit: Yes Status: Acute New onset afib. Started on heparin gtt. HR continues to be 120's. He did not tolerate cardizem due to low blood pressure. H/o HOCM. TTE 02/2017:LVEF 60-65%. Moderate asymmetric septal hypertrophy. Normal left ventricular diastolic function. Normal right ventricular structure and function. 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 There is a resting LVOT obstruction, Max PG 22 mmHg. No pulmonary hypertension. Recent cardiac CTA at [facility] showed patent coronaries. Discussed with Dr. Devine, we will proceed with KAMILAH/ DCCV today. (2) Hypertrophic obstructive cardiomyopathy (HOCM) Current Visit: Yes Status: Acute H/o HOCM. Following with Dr. Devine and [facility]. Awaiting cardiac MRI as out-pt. (3) Elevated troponin Current Visit: Yes Status: Acute Troponin up to 2.88 in the setting of HOCM and afib with RVR. Discussed with Dr. Devine, recent cardiac CTA showed patent coronaries. WIll obtain record from office. No indication for LHC. Likely demand ischemia. Discussion w patient/family: The assessment and plan as outlined above was discussed with the patient and/or family members who expressed understanding and agreement. All questions were answered. Thank you for involving us in the care of your patient. Please call with any questions. History of Present Illness Consult date: 06/12/17 Requesting physician: Markos Gonsalez Consult reason: atrial fibrillation with RVR Chief complaint: Chest pain, dyspnea, palpitations. History of present illness: Mr. Velazquez is a 26 year old male with past medical history of HOCM, pericarditis in 2015, and psoriasis. He presented from work with onset of palpitations, dyspnea, and chest discomfort. 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 His symptoms started when he was called for help and started running. He was found to be in atrial fibrillation with RVR. he was started on cardizem IVP and IV gtt and he did not tolerate well due to low blood pressure. He denies previous history of afib. He recently underwent cardiac CTA at [facility] and followed with the structural heart disease team. Past Med Surg Social Fam HX - Past Medical History Medical history: no medical history Psychiatric history: no psych history - Past Surgical History Surgical History: no surgical history - Social History Smoking Status: Current every day smoker Smokeless Tobacco Status: No Alcohol use: occasionally Drug use: none - Family History Mother Adopted: No Family Member Ethnicity: Non- Living Status: Still Living Hx Family Cardiac Disorders: Yes (Hypertension) Hx Family Respiratory Disorders: No Hx Family Cancer: No Hx Family GI Disorders: No Hx Family Endocrine Disorder: Yes (Diabetes) Hx Family Neuromuscular Disorders: No Hx Family Neurologic Disorders: No Hx Family HEENT Disorders: No Hx Family Autoimmune Disorders: No Sister Adopted: No Family Member Ethnicity: Non- Living Status: Still Living Hx Family Cardiac Disorders: No Hx Family Respiratory Disorders: No Hx Family Cancer: No Hx Family GI Disorders: No Hx Family Endocrine Disorder: No Hx Family Neuromuscular Disorders: No Hx Family Neurologic Disorders: No Hx Family HEENT Disorders: No Hx Family Autoimmune Disorders: No Brother Adopted: No Family Member Ethnicity: Non- Living Status: Still Living Hx Family Cardiac Disorders: No Hx Family Respiratory Disorders: No Hx Family Cancer: No Hx Family GI Disorders: No Hx Family Endocrine Disorder: No Hx Family Neuromuscular Disorders: No Hx Family Neurologic Disorders: No Hx Family HEENT Disorders: No Hx Family Autoimmune Disorders: No Medications and Allergies Metoprolol [Lopressor] 100 mg PO BID 06/12/17 [History] 3 Allergy/AdvReac Type Severity Reaction Status Date / Time No Known Allergies Allergy Verified 10/13/16 10:50 All Systems Review: The remainder of the systems were reviewed and are negative Physical Examination Vital Signs, Last 4 Hours Temp Pulse Resp BP Pulse Ox 06/12/17 08:09 120 06/12/17 07:00 98.2 F 124 20 85/75 95 06/12/17 06:30 129 112/57 06/12/17 06:00 135 106/59 General: Conversant, No Apparent Distress HEENT: Atraumatic, Normocephaly, Mucus Membranes Moist Neck: No JVD, Normal carotid pulses Cardiac: Other (Irregularly irregular, 2/6 murmur ) Lungs: Normal Breath Sounds, No Wheeze, Rales, Rhonchi, Other Neuro: Alert and responsive, No focal deficits noted Abdomen: Soft, Non-Tender Skin: No rashes noted on visualized skin Musculoskeletal: No Chest Wall Tenderness Extremities: No Clubbing, No Cyanosis, No Edema, Normal Pulses Results 06/12/17 00:11 06/12/17 05:47 Lab Results 06/12/17 05:47 Sodium 138 Potassium 3.6 Chloride 111 H Carbon Dioxide 21 L BUN 16 Creatinine 0.97 Glucose 87 Calcium 8.6 Total Bilirubin 0.6 AST 57 H ALT 92 H Alkaline Phosphatase 67 Troponin I 2.88 H* - Imaging and Cardiology Echo: report reviewed - EKG Interpretation EKG results cardiology: personally reviewed (Atrial fibrillation with RVR, HR 120 bpm.Incomplete RBBB) Consult Discharge Plan - Plan [facility] Care Provider[facility] - 06/19/17 9:15 am <Gayla Devine - Last Filed: 06/12/17 11:08> Date of Encounter: 06/12/17 - Attending Attestation I have personally performed a face to face evaluation on this patient. I have reviewed and agree with the care plan. History and Exam by me shows: 26-year-old male with known hypertrophic obstructive cardiomyopathy with a peak gradient of 22 mmHg at rest presents with A. fib RVR after running at work. Patient does follow with structural heart clinic at [facility]. Cardiac MRI pending. CTA of the coronaries recently performed showing patent coronary vessels. Peak troponin of 2.71 with A. fib RVR on presentation likely related to demand ischemia. We will proceed with KAMILAH cardioversion with reassurance regards to his elevated troponins. Assessment and Plan Discussion w patient/family: The assessment and plan as outlined above was discussed with the patient and/or family members who expressed understanding and agreement. All questions were answered. Thank you for involving us in the care of your patient. Please call with any questions. History of Present Illness History of present illness: Mr. Velazquez is a 26 year old male All Systems Review: The remainder of the systems were reviewed and are negative Physical Examination Vital Signs, Last 4 Hours Pulse BP 06/12/17 09:46 110 104/84 06/12/17 08:09 120 Results 06/12/17 00:11 06/12/17 05:47 Lab Results 04/06/18 04/06/18 05:47 09:08 APTT 46.2 H Sodium 138 Potassium 3.6 Chloride 111 H Carbon Dioxide 21 L BUN 16 Creatinine 0.97 Glucose 87 Calcium 8.6 Total Bilirubin 0.6 AST 57 H ALT 92 H Alkaline Phosphatase 67 Troponin I 2.88 H*
--- NOTE | 2017-06-12 10:02 | Event Note ---
Date of Encounter: 06/12/17 Time of Encounter: 09:40 Patient is a 26y/o male with PMH of hypertrophic obstructive cardiomyopathy who is admitted for new onset afib and elevated TNI. Pt seen and examined with family present at bedside. Pt was evaluated by cardiology and is scheduled for KAMILAH/Cardioversion today. Pt's rate improved after receiving this morning's Metoprolol dose, was unable to tolerate Diltiazem overnight current BP: 102/70, HR fluctuating between 90-110 Denies any chest pain or respiratory distress, sitting comfortably in bed Will continue IV fluids, heparin gtt will continue to closely monitor
[2017-06-12] MEDS: *HR* Heparin 5,000 UNIT/ML VIAL IVP PRN ×2 (10:18→18:30)
[2017-06-12] MEDS ORDERED: *HR* FentaNYL (PF) 100 MCG/2 ML VIAL IVP PRN (12:52)
[2017-06-12] MEDS ORDERED: Lidocaine Viscous Oral Soln 15 ML SOLUTION MM PRN (12:52)
[2017-06-12] MEDS ORDERED: Tetracaine/Benzocaine/Butamben 200MG/SPRAY (100SPY/BOT) MM ONE (12:53)
[2017-06-12] MEDS ORDERED: 0.9 % Sodium Chloride 500 ML IVC ONE ×3 (12:53→13:40)
[2017-06-12] MEDS ORDERED: *HR* Midazolam HCl 2 MG/2 ML VIAL IVP PRN (12:53)
[2017-06-12] MEDS ORDERED: *HR* Midazolam HCl 5 MG/5 ML VIAL IVP ONE ×4 (13:03→13:05)
[2017-06-12] MEDS ORDERED: Amiodarone Premix 150 MG/100 ML BAG IVPB ONE (13:58)
[2017-06-12] MEDS ORDERED: Amiodarone Premix 360 MG/200 ML BAG IVC ONE (13:59)
--- NOTE | 2017-06-12 14:02 | Event Note ---
Date of Encounter: 06/12/17 Time of Encounter: 14:00 - Cardiology Event Note Pt has been hypotensive, KAMILAH/DCCV cancelled due to likelihood that BP will not tolerate adequate amount of sedation needed for KAMILAH/DCCV. Discussed with Dr. Devine. Pt presented at onset of symptoms, has been less than 48 hours and has been on heparin gtt since admission. Per Dr. Devine, will give IV bolus of amiodarone and start loading gtt in attempt to restore NSR. Continue to follow.
[2017-06-12] MEDS: Amiodarone Premix 360 MG/200 ML BAG IVC SCH (22:16)
[2017-06-13 00:30] LABS: Basophils # 0.1 K/mcL (0.0-0.2); Basophils % 0.5 %; Eosinophils # 0.2 K/mcL (0.0-0.6); Eosinophils % 1.9 %; Hemoglobin 13.2 g/dL (12.9-16.9); Immature Granulocytes % 0.3 % (0-4); Lymphocytes % 41.3 %; Mean Corpuscular HGB Conc 34.7 g/dL (31.6-35.5); Mean Corpuscular Hemoglobin 30.6 pg (28.0-33.3); Mean Platelet Volume 11.2 fL (9.4-12.4); Monocytes # 0.7 K/mcL (0.0-1.3); Monocytes % 7.3 %; Neutrophils # 4.7 K/mcL (1.6-8.9); Platelet Count 133 K/mcL (140-400); Red Blood Count 4.32 M/mcL (4.19-5.50); Red Cell Distribution Width 12.4 % (11.5-14.5); Segmented Neutrophils % 48.7 %
[2017-06-13] MEDS: Heparin 25,000 UNIT/500 ML D5W 25,000 UNIT/500 ML BAG IVC SCH (00:38)
[2017-06-13 00:50] LABS: BUN/Creatinine Ratio 15 (6-26); Blood Urea Nitrogen 13 mg/dL (6-20); Calcium 9.1 mg/dL (8.6-10.3); Carbon Dioxide 21 mEq/L (23-29); Chloride 112 mEq/L (98-107); Glucose 90 mg/dL (70-105); Magnesium 1.9 mg/dL (1.6-2.6); Osmolality,Calculated 288 (280-300); Phosphorous 4.3 mg/dL (2.7-4.5); Sodium 139 mEq/L (136-145); eGFR For African Americans > 60 (> 60); eGFR For Non-African Americans > 60 (> 60)
[2017-06-13] MEDS: Aspirin Enteric Coated 81 MG Tablet PO SCH (07:29)
[2017-06-13] MEDS ORDERED: 0.9 % Sodium Chloride 250 ML IVC ONE (07:57)
[2017-06-13] MEDS ORDERED: Amiodarone Premix 150 MG/100 ML BAG IVPB ONE ×2 (10:25→15:41)
[2017-06-13] MEDS ORDERED: *HR* Metoprolol 5 MG/5 ML VIAL IVP ONE ×3 (10:42→14:03)
[2017-06-13] MEDS: Amiodarone Premix 360 MG/200 ML BAG IVC SCH (10:51)
[2017-06-13 11:11] VITALS: BP 119/96
--- NOTE | 2017-06-13 11:23 | Cardiology Progress Note ---
Date of Encounter: 06/13/17 Time of Encounter: 11:20 Assessment and Plan (1) Atrial fibrillation with RVR Current Visit: Yes Status: Acute New onset afib on 06/11/17, presented within hours of symptoms onset. Started on heparin gtt. 12 hr tele AVG HR 108--On Lopressor 50mg BID. H/o HOCM. TTE 02/2017:LVEF 60-65%. Moderate asymmetric septal hypertrophy. Normal left ventricular diastolic function. Normal right ventricular structure and function. 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 There is a resting LVOT obstruction, Max PG 22 mmHg. No pulmonary hypertension. Recent cardiac CTA at [facility] showed patent coronaries. Plan was for KAMILAH/ DCCV yesterday, but cancelled due to hypotension. Started amiodarone gtt in attempt to restore SR. Still in A-Fib, on amio gtt. Continue amio gtt. If has not converted by early afternoon, Dr. Devine will consider DCCV. Does not feel KAMILAH is warranted given that he presented 4 hours after A- Fib onset and has been on heparin gtt since arrival. Further recommendations to follow. Was also given one time IV dose of Lopressor 5mg. (2) Hypertrophic obstructive cardiomyopathy (HOCM) Current Visit: Yes Status: Acute H/o HOCM. Following with Dr. Devine and [facility]. Awaiting cardiac MRI as out-pt. (3) Elevated troponin Current Visit: Yes Status: Acute Troponin up to 2.88 in the setting of HOCM and afib with RVR. Discussed with Dr. Devine, recent cardiac CTA showed patent coronaries. No indication for LHC. Likely demand ischemia. Discussion w patient/family: The assessment and plan as outlined above was discussed with the patient and/or family members who expressed understanding and agreement. All questions were answered. Thank you for involving us in the care of your patient. Please call with any questions. I will discuss all the above with Dr. Devine and make changes as necessary. Subjective Principal diagnosis: A-Fib RVR Interval history: Remains in A-Fib, on Amio gtt. KAMILAH/DCCV cancelled yesterday due to hypotension. No acute complaints this AM. Objective Vital Signs, Last 4 Hours Temp Pulse Resp BP Pulse Ox 06/13/17 11:09 98.7 F 94 18 119/96 95 06/13/17 09:50 114/82 06/13/17 09:22 108 96/55 06/13/17 07:36 128 18 97/66 95 06/13/17 07:33 91 Vital Signs Temp Pulse Resp BP Pulse Ox 06/13/17 11:09 98.7 F 94 18 119/96 95 06/13/17 09:50 114/82 06/13/17 09:22 108 96/55 06/13/17 07:36 128 18 97/66 95 06/13/17 07:33 91 06/13/17 05:09 98.8 F 105 18 105/70 94 06/13/17 04:40 112/74 06/13/17 00:53 98.9 F 101 18 108/75 97 06/13/17 00:00 108/72 06/12/17 22:05 108/78 06/12/17 20:20 135 06/12/17 20:16 106 18 100/82 97 06/12/17 18:16 122 107/89 06/12/17 17:27 98.9 F 106 18 83/62 96 06/12/17 16:23 125 94/74 06/12/17 15:23 110 06/12/17 15:19 118 98/71 06/12/17 15:00 105 92/68 06/12/17 14:05 110 20 83/50 97 06/12/17 12:54 97.2 F L 114 12 98/44 97 06/12/17 12:05 110 06/12/17 11:41 98.5 F 87 20 86/60 95 Intake and Output 06/12/17 06/13/17 06/13/17 23:59 07:59 15:59 Intake Total 1482 / 1482 547 / 547 250 / 250 Output Total 550 / 550 950 / 950 700 / 700 Balance 932 / 932 -403 / -403 -450 / -450 Intake: IV Fluids 1122 / 1122 547 / 547 250 / 250 0.9 % Sodium Chloride 1,000 ML 922 / 922 @ 150 mls/hr IVC .Q6H40M FORMERLY [facility], [facility] Rx #:[id number] Amiodarone Drip Premix 360mg/ 200 / 200 250 / 250 200mL 360 mg In 200 ml @ 0.5 MG /MIN 16.667 mls/hr IVC CONT FILIPPO Rx#:[id number] Heparin 25,000 UNIT/500 ML D5W 0 / 0 547 / 547 25,000 unit In 500 ml @ 8.5 UNIT/KG/HR 20.049 mls/hr IVC . Q24H FILIPPO Rx#:[id number] Oral 360 / 360 Output: Urine 550 / 550 950 / 950 700 / 700 Other: Meal Dinner Breakfast Percent of Meal Consumed 75% 0% Weight 118.9 kg Patient Weight 06/13/17 23:59 Weight 118.9 kg General: Conversant, No Apparent Distress HEENT: Atraumatic, Normocephaly, Mucus Membranes Moist Neck: No JVD, Normal carotid pulses Cardiac: Other (irregularly irregular) Lungs: Normal Breath Sounds, No Wheeze, Rales, Rhonchi Neuro: Alert and responsive, No focal deficits noted Abdomen: Soft, Non-Tender Skin: No rashes noted on visualized skin Musculoskeletal: No Chest Wall Tenderness Extremities: No Clubbing, No Cyanosis, No Edema, Normal Pulses Results 06/13/17 00:17 06/13/17 00:17 Lab Results 06/12/17 06/12/17 06/13/17 16:30 16:30 00:17 WBC 9.6 Hgb 13.2 D Hct 38.0 Plt Count 133 L APTT 45.6 H Sodium Potassium Chloride Carbon Dioxide BUN Creatinine Glucose Calcium Magnesium Troponin I 2.45 H* 06/13/17 06/13/17 06/13/17 00:17 00:17 05:55 WBC Hgb Hct Plt Count APTT 78.8 H D 72.5 H Sodium 139 Potassium 4.0 Chloride 112 H Carbon Dioxide 21 L BUN 13 Creatinine 0.84 Glucose 90 Calcium 9.1 Magnesium 1.9 Troponin I Short CBC 06/13/17 Range/Units 00:17 WBC 9.6 (4.3-11.1) K/mcL Hgb 13.2 D (12.9-16.9) g/dL Hct 38.0 (37.5-50.1) % Plt Count 133 L (140-400) K/mcL Neutrophils # 4.7 (1.6-8.9) K/mcL BMP 06/13/17 Range/Units 00:17 Sodium 139 (136-145) mEq/L Potassium 4.0 (3.5-5.1) mEq/L Chloride 112 H (98-107) mEq/L Carbon Dioxide 21 L (23-29) mEq/L BUN 13 (6-20) mg/dL Creatinine 0.84 (0.70-1.30) mg/dL Glucose 90 (70-105) mg/dL Calcium 9.1 (8.6-10.3) mg/dL Cardiac Enzymes 06/12/17 Range/Units 16:30 Troponin I 2.45 H* (< 0.04) ng/mL Active Medications Acetaminophen (Tylenol) 650 mg PO Q6HR PRN PRN Reason: Mild Pain/Fever Stop: 12/12/17 03:58 Aspirin (Aspirin Ec) 81 mg PO DAILY FILIPPO Stop: 12/12/17 09:01 Last Admin: 06/13/17 07:29 Dose: 81 mg Heparin Sodium (Porcine) (Heparin) 4,000 unit IVP Q6HR PRN PRN Reason: SEE COMMENTS Stop: 12/12/17 03:02 Heparin Sodium (Porcine) (Heparin) 2,000 unit IVP Q6H PRN PRN Reason: SEE COMMENTS Stop: 12/12/17 03:02 Last Admin: 06/12/17 18:30 Dose: 2,000 unit Heparin Sodium/Dextrose (Heparin 25,000 Unit/500 Ml D5w) 25,000 unit in 500 mls @ 20.049 mls/hr IVC .Q24H FILIPPO; 8.5 UNIT/KG/HR PRN Reason: Protocol Stop: 12/12/17 03:16 Last Titration: 06/13/17 07:29 Dose: 12.59 unit/kg/hr, 29.7 mls/hr Amiodarone HCl/Dextrose (Amiodarone Drip Premix 360mg/200ml) 360 mg in 200 mls @ 16.667 mls/hr IVC CONT FILIPPO PRN Reason: 0.5 MG/MIN Stop: 12/12/17 14:01 Last Admin: 06/13/17 10:51 Dose: 0.5 mg/min, 16.667 mls/hr Metoprolol Tartrate (Lopressor) 50 mg PO BID FILIPPO Stop: 12/12/17 09:01 Last Admin: 06/13/17 07:29 Dose: 50 mg Naloxone HCl (Narcan) 0.4 mg IVP Q2MIN PRN PRN Reason: SEE COMMENTS Stop: 12/12/17 03:58 - EKG Interpretation EKG results cardiology: other (12 hr tele AVG HR 108, A-Fib.) Consult Discharge Plan - Plan Referrals: [facility] [Primary Care Provider[facility] - 06/19/17 9:15 am
--- NOTE | 2017-06-13 13:04 | Electrocardiograph Report ---
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
--- NOTE | 2017-06-13 13:07 | Electrocardiograph Report ---
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
--- NOTE | 2017-06-13 13:08 | Electrocardiograph Report ---
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
--- NOTE | 2017-06-13 14:10 | Internal Med Progress Note ---
Date of Encounter: 06/13/17 Time of Encounter: 09:40 - Assessment and plan (1) Atrial fibrillation with RVR Current Visit: Yes Status: Acute Assessment and plan: New onset afib 2D echo reported LVEF of 60-65% with moderate asymmetric septal hypertrophy Plan for KAMILAH/DCCV from yesterday was cancelled due to hypotension Will continue BB, amiodarone gtt today cardio will attempt to cardiovert if the patient remains in Afib despite medical management continue heparin gtt will continue tele monitoring (2) Elevated troponin I level Current Visit: Yes Status: Acute Assessment and plan: likely demand ischemia in the setting of new onset afib cardiology following no need for LHC at this time pt has remained chest pain free throughout the course of this hospitalization (3) Hypertrophic obstructive cardiomyopathy (HOCM) Current Visit: Yes Status: Chronic (4) Obesity (BMI 30-39.9) Current Visit: Yes Status: Chronic (5) DVT prophylaxis Current Visit: Yes Status: Acute Assessment and plan: heparin gtt - Time Spent With Patient Total time spent is greater than 50% in coordination of care (as documented) at patient's floor/unit and/or counseling patient: - Subjective Interval history: Pt seen and examined with family present at bedside. Pt denies any discomfort but remains in Afib Currently on Amiodarone gtt and heparin gtt Cardiology on board and evaluation appreciated - Constitutional Vitals: Temp Pulse Resp BP Pulse Ox 98.7 F 94 18 119/96 95 06/13/17 11:09 06/13/17 11:09 06/13/17 11:09 06/13/17 11:09 06/13/17 11:09 General appearance: Present: A&O X 3, no acute distress, obese, answers questions appropriately - Head Head exam: Present: atraumatic, normocephalic - Eye Eye exam: Present: conjuntiva pink, sclera anicteric - Respiratory Respiratory exam: Present: CTAB. Absent: respiratory distress, wheezes - Cardiovascular Cardiovascular exam: Present: irregular rhythm, +S1, +S2, tachycardia - GI/Abdominal GI/Abdominal exam: Present: normal bowel sounds, soft, no peritoneal signs. Absent: distended, tenderness - Extremities Exam Extremities exam: Present: warm, radial pulses palpable and symmetrical. Absent : calf tenderness, pedal edema, tenderness - Neurological Exam Neurological exam: Present: oriented X3 - Psychiatric Psychiatric exam: Present: normal affect, normal mood Internal Medicine: Result - Labs CBC & Chem 7: 06/13/17 00:17 06/13/17 00:17 Labs: Short CBC 06/13/17 Range/Units 00:17 WBC 9.6 (4.3-11.1) K/mcL Hgb 13.2 D (12.9-16.9) g/dL Hct 38.0 (37.5-50.1) % Plt Count 133 L (140-400) K/mcL Neutrophils # 4.7 (1.6-8.9) K/mcL BMP 06/13/17 00:17 Sodium 139 Potassium 4.0 Chloride 112 H Carbon Dioxide 21 L BUN 13 Creatinine 0.84 Glucose 90 Calcium 9.1 Cardiac Enzymes 06/12/17 Range/Units 16:30 Troponin I 2.45 H* (< 0.04) ng/mL - ABG Interpretation ABG results: PT/INR, D-dimer PT 11.2 Seconds (9.4-12.1) 06/12/17 00:01 Consult Discharge Plan - Plan Referrals: DAPHNE,PCP [Primary Care Provider] - 06/19/17 9:15 am
[2017-06-13] MEDS ORDERED: 0.9 % Sodium Chloride 1,000 ML ONE (15:40)
[2017-06-13] MEDS ORDERED: *HR* Rivaroxaban 10 MG TABLET PO ONE (15:42)
[2017-06-14] MEDS ORDERED: *HR* Rivaroxaban 10 MG TABLET PO SCH (17:00)
--- NOTE | 2017-07-22 19:38 | Discharge Summary ---
Date of Encounter: 06/13/17 Time of Encounter: 09:40 - Discharge Diagnosis (1) Atrial fibrillation with RVR Priority: Primary Status: Acute (2) Elevated troponin I level Priority: Primary Status: Acute (3) Hypertrophic obstructive cardiomyopathy (HOCM) Priority: Secondary Status: Chronic (4) Obesity (BMI 30-39.9) Priority: Secondary Status: Chronic (5) DVT prophylaxis Priority: Secondary Status: Acute Hospital course: Mr. Velazquez is a 27 year old male - Time Spent with Patient Total time spent providing and/or coordinating discharge services: - Discharge Medications Home Medications: Metoprolol [Lopressor] 100 mg PO BID 06/12/17 [History] Allergies/Adverse Reactions: 3 Allergy/AdvReac Type Severity Reaction Status Date / Time No Known Allergies Allergy Verified 10/13/16 10:50 Date of admission: 06/12/17 04:47 Primary care physician: PCP DAPHNE - Constitutional Vitals: Temp Pulse Resp BP Pulse Ox 98.7 F 94 18 119/96 95 06/13/17 11:09 06/13/17 11:09 06/13/17 11:09 06/13/17 11:09 06/13/17 11:09 General appearance: Present: A&O X 3, no acute distress, obese, answers questions appropriately - Patient Status Disposition: Left Against Medical Advice Condition: Fair - Discharge Instructions Follow Up With: DAPHNEPCP [Primary Care Provider] - 06/19/17 9:15 am
== END 2017-06-13 16:20 | disposition left against medical advice (07) | DRG 310 ==
LOC: EMEROO 23:42 → 2NNU 23:42
PROVIDERS: ADMIT Family Medicine; ATTEND Internal Medicine

== ENCOUNTER 2018-01-17 22:30 | Observation (INO) ==
[2018-01-17] MEDS ORDERED: 0.9 % Sodium Chloride 1,000 ML IVC ONE (22:37)
[2018-01-17] MEDS ORDERED: *HR* FentaNYL (PF) 100 MCG/2 ML VIAL IVP ONE (22:37)
--- NOTE | 2018-01-17 22:45 | Emergency Department Note ---
Disposition Clinical Impression: Post-operative pain Disposition: Still a Patient General Adult HPI - General Stated complaint: Foot Pain Time Seen by Provider: 01/17/18 22:34 Nursing Notes Reviewed: Yes Vital Signs Reviewed: Yes - History of Present Illness HPI Narrative: Attestation note: Patient was seen with the emergency medicine resident/nurse practitioner/physician behavioral health assistant/transitional resident/medical student: Dr. Pat Rivas I have personally performed a face to face evaluation on this patient. I have r eviewed and agree with history and physical examination patient management and disposition. Briefly the salient points of the case are as follows: 27-year-old male [employer] RCI by EMS for intense foot and ankle pain since his return block off. Patient said he was trying to take his oxycodone but no effect. He says it "very very painful. He said he kept his foot elevated weight off his heel. His original injury was a lateral ED place malleolar fracture of the fibula. Patient on physical examination is afebrile with stable vitals first in moderate distress there is no tenseness of any the compartments foreleg 2+ pulses the surgical sites are free and clear of infection or bleeding. The patient contacted Dr. Middleton prior to arrival wished to be consulted upon arrival. Patient will be getting parenteral fentanyl IV fluids and screening labs. Disposition pending - Related Data Home Medications Medication Instructions Recorded Confirmed Metoprolol [Lopressor] 100 mg PO BID 06/12/17 01/15/18 Previous Rx's Medication Instructions Recorded Ondansetron ODT [Zofran ODT] 4 mg SL Q8HR PRN #12 tab.rapdis 01/15/18 Oxycodone HCl/Acetaminophen 1 each PO Q4-6H PRN 5 Days #30 01/15/18 [Percocet 5-325 mg Tablet] tablet Rivaroxaban [Xarelto] 10 mg PO DAILY #20 tablet 01/15/18 Allergies Allergy/AdvReac Type Severity Reaction Status Date / Time No Known Allergies Allergy Verified 01/09/18 03:33 Past Medical History - Past Medical History Medical history: Reports: atrial fibrillation, cardiomyopathy Surgical history: Reports: vasectomy Psychiatric history: Reports: no psych history - Social History Smoking Status: Current every day smoker Smokeless Tobacco Status: Yes Alcohol use: Reports: rarely Drug use: Reports: none
--- NOTE | 2018-01-17 22:45 | Emergency Department Note ---
Disposition Clinical Impression: Post-operative pain Disposition: Admitted As Inpatient Condition: Good Forms: ED Satisfaction Letter Time of Disposition: 23:20 General Adult HPI - General Stated complaint: Foot Pain Time Seen by Provider: 01/17/18 22:34 Source: patient, EMS Limitations: no limitations Nursing Notes Reviewed: Yes Vital Signs Reviewed: Yes - History of Present Illness HPI Narrative: Male patient presenting to emergency by EMS. He had an ORIF to the left ankle on Thursday 3 days ago. States that he had a nerve block however this were off yesterday. Since then he has been under an increasing level of pain. He states that it is now unbearable. He is using Percocet at home with no relief. He states that he has been elevating his leg. He denies a shortness of breath or chest pain. He does report that he gets nauseated secondary to the pain and also has felt like he may pass out secondary to the pain. He has not had any additional trauma to this extremity. He did talk with Dr. Middleton who told him to come to the emergency department. Pain Scale: 10 - Related Data Home Medications Medication Instructions Recorded Confirmed Metoprolol [Lopressor] 100 mg PO BID 06/12/17 01/15/18 Previous Rx's Medication Instructions Recorded Ondansetron ODT [Zofran ODT] 4 mg SL Q8HR PRN #12 tab.rapdis 01/15/18 Oxycodone HCl/Acetaminophen 1 each PO Q4-6H PRN 5 Days #30 01/15/18 [Percocet 5-325 mg Tablet] tablet Rivaroxaban [Xarelto] 10 mg PO DAILY #20 tablet 01/15/18 Allergies Allergy/AdvReac Type Severity Reaction Status Date / Time No Known Allergies Allergy Verified 01/09/18 03:33 All systems ED: reviewed and negative except as stated. Review of Systems: As Per HPI Constitutional: Denies: fever, chills ENT ED: Denies: congestion Cardiovascular: Denies: chest pain, syncope Respiratory: Denies: cough, dyspnea Gastrointestinal: Reports: nausea. Denies: abdominal pain, vomiting, diarrhea Musculoskeletal: Reports: other (Left lower extremity pain. He reports from his knees to his toes.). Denies: back pain, neck pain Neurological: Denies: weakness Past Medical History - Past Medical History Attestation: Yes The following information was validated with the patient. Source: patient Medical history: Reports: cardiomyopathy Surgical history: Reports: vasectomy Psychiatric history: Reports: no psych history - Social History Smoking Status: Current some day smoker Smokeless Tobacco Status: No Alcohol use: Reports: occasionally Drug use: Reports: none Physical Exam - General Limitations: no limitations General appearance: alert, in distress - Head Head exam: atraumatic, normocephalic, normal inspection - Eye Eye exam: Present: normal appearance, PERRL, EOMI. Absent: scleral icterus - ENT ENT exam: normal exam, normal oropharynx, mucous membranes moist - Neck Neck exam: Present: normal inspection, full ROM, trachea midline - Chest Chest inspection: Present: normal inspection, symmetric chest wall rise. Absent: tenderness - Respiratory Respiratory exam: Present: normal lung sounds bilaterally. Absent: respiratory distress, accessory muscle use - Cardiovascular Cardiovascular exam: Present: regular rate, normal rhythm, normal heart sounds - Abdominal Exam Abdominal exam: Present: soft, Non-Tender. Absent: tenderness, distention, guarding, rebound, rigidity, organomegaly, Ayala's sign, Rovsing's sign, tenderness at McBurney's Point - Expanded Upper Extremity Exam Shoulder exam: Present: normal inspection, full ROM Arm exam: Present: normal inspection, full ROM Elbow exam: Present: normal inspection, full ROM Forearm/Wrist exam: Present: normal inspection, full ROM Hand exam: Present: normal inspection, full ROM Vascular exam: Normal: capillary refill, radial pulse - Expanded Lower Extremity Exam Hip/Pelvis exam: Present: normal inspection, full ROM Upper leg exam: Present: normal inspection, full ROM Knee exam: Present: normal inspection, full ROM Lower leg exam: Present: other (Patient has strong pedal pulses bilaterally. He does have some mild edema to his left lower extremity. Initially the left lower extremity was wrapped with an Merlin wrap and a splint. This was taken down. The patient has soft compartments in the left lower extremity. There is no gross swelling. He does have ryder to the lateral aspect of the left lower extremity that do not appear to be grossly infected. They appear to be healing appropriately. There is no discharge. He has sensation throughout his lower extremity as well. He is able to move all 5 toes.) Ankle exam: Present: normal inspection, full ROM Foot/toe exam: Present: normal inspection, full ROM Neurovascular/Tendon exam: Absent: motor deficit, sensory deficit, tendon deficit - Back Exam Back exam: Present: normal inspection, full ROM. Absent: tenderness - Neurological Exam Neurological exam: Present: alert, oriented X3 - Psychiatric Psychiatric exam: Present: normal affect, normal mood - Skin Skin exam: Present: warm, dry, intact, normal color. Absent: rash, cyanosis, diaphoresis Course Course Narrative: Patient underwent an ORIF to the left lower extremity on Thursday 3 days ago. He did have a nerve block initially however the pain has gotten significantly worse over yesterday. He denies any recent trauma to this extremity. No shortness of breath or chest pain. He is on anticoagulants at this time. He has no history of DVT. His ankle appears well after undressing it. We did speak with Dr. Middleton. The concerns are for possible compartment syndrome, DVT, infection or likely a complex regional pain syndrome. The patient is taking Percocets at home with no relief of the pain. He did recommend possibly adding gabapentin to help with the pain. We did give the patient fentanyl and we will give him gabapentin as well. We will get an ultrasound of this left lower extremity. Patient's compartments are soft. We did get a CPK level however not concerned for compartment syndrome at this time. Patient has good sensation and good pulses in this extremity in the compartments are soft. Does have some mild ecchymosis and mild edema. Patient is requesting admission to the hospital at this time for pain management. I feel this is reasonable. - Consultations Consultation #1: I spoke with Dr Middleton. Time: 22:47 Vital Signs Temperature 99.1 F 01/17/18 22:40 Pulse Rate 53 01/17/18 22:40 Respiratory Rate 18 01/17/18 22:40 Blood Pressure 125/78 01/17/18 22:40 O2 Sat by Pulse Oximetry 99 01/17/18 22:40 Temperature 99.1 F 01/17/18 22:40 Pulse Rate 53 01/17/18 22:40 Respiratory Rate 18 01/17/18 22:40 Blood Pressure 125/78 01/17/18 22:40 O2 Sat by Pulse Oximetry 99 01/17/18 22:40 Oxygen Delivery Oxygen Delivery Room Air Medical Decision Making - Medical Records Medical records reviewed: Yes I reviewed the patient's medical records. - Lab Data Lab results reviewed: Yes I reviewed the patient's lab results. Result diagrams: 01/17/18 22:55 Lab Results 01/17/18 Range/Units 22:55 WBC 13.1 H (4.3-11.1) K/mcL RBC 4.48 (4.19-5.50) M/mcL Hgb 13.7 (12.9-16.9) g/dL Hct 40.0 (37.5-50.1) % MCV 89.3 (83.0-100.0) fL MCH 30.6 (28.0-33.3) pg MCHC 34.3 (31.6-35.5) g/dL RDW 12.3 (11.5-14.5) % Plt Count 197 (140-400) K/mcL MPV 10.3 (9.4-12.4) fL Immature Gran % 0.5 (0-4) % Seg Neutrophils % 54.9 % Lymphocytes % 36.1 % Monocytes % 6.5 % Eosinophils % 1.5 % Basophils % 0.5 % Neutrophils # 7.2 (1.6-8.9) K/mcL Lymphocytes # 4.7 H (0.6-4.6) K/mcL Monocytes # 0.9 (0.0-1.3) K/mcL Eosinophils # 0.2 (0.0-0.6) K/mcL Basophils # 0.1 (0.0-0.2) K/mcL
--- NOTE | 2018-01-17 22:47 | Emergency Department Note ---
Disposition Clinical Impression: Post-operative pain General Adult HPI - General Chief complaint: ED Extremity Injury, Lower Stated complaint: Foot Pain Time Seen by Provider: 01/17/18 22:34 Source: patient, EMS Limitations: no limitations Nursing Notes Reviewed: Yes Vital Signs Reviewed: Yes - History of Present Illness Pain Scale: 10 - Related Data Home Medications Medication Instructions Recorded Confirmed Metoprolol [Lopressor] 100 mg PO BID 06/12/17 01/15/18 Previous Rx's Medication Instructions Recorded Ondansetron ODT [Zofran ODT] 4 mg SL Q8HR PRN #12 tab.rapdis 01/15/18 Oxycodone HCl/Acetaminophen 1 each PO Q4-6H PRN 5 Days #30 01/15/18 [Percocet 5-325 mg Tablet] tablet Rivaroxaban [Xarelto] 10 mg PO DAILY #20 tablet 01/15/18 Allergies Allergy/AdvReac Type Severity Reaction Status Date / Time No Known Allergies Allergy Verified 01/09/18 03:33 Past Medical History - Past Medical History Medical history: Reports: atrial fibrillation, cardiomyopathy Surgical history: Reports: vasectomy Psychiatric history: Reports: no psych history - Social History Smoking Status: Current every day smoker Smokeless Tobacco Status: Yes Alcohol use: Reports: rarely Drug use: Reports: none Physical Exam - General Limitations: no limitations General appearance: alert, in distress Course Vital Signs Temperature 99.1 F 01/17/18 22:40 Pulse Rate 53 01/17/18 22:40 Respiratory Rate 18 01/17/18 22:40 Blood Pressure 125/78 01/17/18 22:40 O2 Sat by Pulse Oximetry 99 01/17/18 22:40 Temperature 99.1 F 01/17/18 22:40 Pulse Rate 53 01/17/18 22:40 Respiratory Rate 18 01/17/18 22:40 Blood Pressure 125/78 01/17/18 22:40 O2 Sat by Pulse Oximetry 99 01/17/18 22:40 Oxygen Delivery Oxygen Delivery Room Air
[2018-01-17] MEDS ORDERED: Gabapentin 400 MG CAPSULE PO ONE (22:48)
[2018-01-17 23:05] LABS: Basophils # 0.1 K/mcL (0.0-0.2); Basophils % 0.5 %; Eosinophils # 0.2 K/mcL (0.0-0.6); Eosinophils % 1.5 %; Hemoglobin 13.7 g/dL (12.9-16.9); Immature Granulocytes % 0.5 % (0-4); Lymphocytes # 4.7 K/mcL (0.6-4.6); Lymphocytes % 36.1 %; Mean Corpuscular HGB Conc 34.3 g/dL (31.6-35.5); Mean Corpuscular Hemoglobin 30.6 pg (28.0-33.3); Mean Corpuscular Volume 89.3 fL (83.0-100.0); Mean Platelet Volume 10.3 fL (9.4-12.4); Monocytes # 0.9 K/mcL (0.0-1.3); Monocytes % 6.5 %; Neutrophils # 7.2 K/mcL (1.6-8.9); Platelet Count 197 K/mcL (140-400); Red Blood Count 4.48 M/mcL (4.19-5.50); Red Cell Distribution Width 12.3 % (11.5-14.5); Segmented Neutrophils % 54.9 %
[2018-01-17 23:12] LABS: INR 1.2; Prothrombin Time 13.8 Seconds (9.4-12.1)
[2018-01-17 23:27] LABS: BUN/Creatinine Ratio 19 (6-26); Blood Urea Nitrogen 16 mg/dL (6-20); Calcium 9.4 mg/dL (8.6-10.3); Carbon Dioxide 25 mEq/L (23-29); Chloride 106 mEq/L (98-107); Creatine Kinase 157 Units/L (30-223); Glucose 92 mg/dL (70-105); Osmolality,Calculated 287 (280-300); Potassium 3.8 mEq/L (3.5-5.1); Sodium 138 mEq/L (136-145); eGFR For Non-African Americans > 60 (> 60)
[2018-01-17] MEDS ORDERED: *HR* HYDROmorphone (PF) 1 MG/ML SYRINGE IVP ONE (23:37)
[2018-01-18] MEDS ORDERED: *HR* HYDROmorphone (PF) 1 MG/ML SYRINGE IVP ONE (00:12)
[2018-01-18] MEDS ORDERED: Ondansetron ODT 4 MG TAB.RAPDIS SL PRN ×2 (01:04→01:47)
[2018-01-18] MEDS ORDERED: Naloxone 0.4 MG/ML INJ IVP PRN (01:04)
--- NOTE | 2018-01-18 01:17 | Internal Med History&Physical ---
Date of Encounter: 01/18/18 Time of Encounter: 01:07 Internal Medicine - H&P: HPI Chief complaint: Left Ankle Pain History of present illness: Mr. Velazquez is a 27 year old male with a significant past medical history atrial fibrillation, hypertrophic obstructive cardiomyopathy and open reduction internal fixation following a distal fracture of the left fibula now postop day 2 complaining of significant pain in the same ankle. Pain has gotten progressively worse since yesterday after the nerve block wore off. Pain is located around the left ankle and extending upward to the mid albright. Pain described as excruciating described as if his ankle is being torn apart from the inside. Surgery was performed by Dr. Miller with podiatry. An ultrasound was performed to rule out DVT which was negative. Patient able to wiggle his toes and has good sensation. Pulses are palpable. Creatinine kinase levels came back normal. He does have a mild leukocytosis of 13 but denies any fever or chills. Case was discussed with Dr. Middleton who recommended the patient be admit belinda for pain control and they will follow patient in the morning. Patient hemodynamically stable, afebrile at this time. Past Med Surg Social Fam HX - Past Medical History Medical history: cardiomyopathy Additional medical history: chest pain Psychiatric history: no psych history - Past Surgical History Surgical History: vasectomy Additional surgical history: L leg surgery - Social History Smoking Status: Current some day smoker Smokeless Tobacco Status: No Alcohol use: occasionally Drug use: none - Family History Mother Adopted: No Family Member Ethnicity: Non- Living Status: Still Living Hx Family Cardiac Disorders: Yes (Hypertension) Hx Family Respiratory Disorders: No Hx Family Cancer: No Hx Family GI Disorders: No Hx Family Endocrine Disorder: Yes (Diabetes) Hx Family Neuromuscular Disorders: No Hx Family Neurologic Disorders: No Hx Family HEENT Disorders: No Hx Family Autoimmune Disorders: No Sister Adopted: No Family Member Ethnicity: Non- Living Status: Still Living Hx Family Cardiac Disorders: No Hx Family Respiratory Disorders: No Hx Family Cancer: No Hx Family GI Disorders: No Hx Family Endocrine Disorder: No Hx Family Neuromuscular Disorders: No Hx Family Neurologic Disorders: No Hx Family HEENT Disorders: No Hx Family Autoimmune Disorders: No Brother Adopted: No Family Member Ethnicity: Non- Living Status: Still Living Hx Family Cardiac Disorders: No Hx Family Respiratory Disorders: No Hx Family Cancer: No Hx Family GI Disorders: No Hx Family Endocrine Disorder: No Hx Family Neuromuscular Disorders: No Hx Family Neurologic Disorders: No Hx Family HEENT Disorders: No Hx Family Autoimmune Disorders: No Internal Medicine - H&P: Meds Metoprolol [Lopressor] 50 mg PO BID 06/12/17 [History] Ondansetron ODT [Zofran ODT] 4 mg SL Q8HR PRN #12 tab.rapdis 01/15/18 [Rx] Oxycodone HCl/Acetaminophen [Percocet 5-325 mg Tablet] 1 each PO Q4-6H PRN 5 Days #30 tablet 01/15/18 [Rx] Rivaroxaban [Xarelto] 10 mg PO DAILY #20 tablet 01/15/18 [Rx] Allergy/AdvReac Type Severity Reaction Status Date / Time No Known Allergies Allergy Verified 01/09/18 03:33 All Systems PM: A 10-system review of systems was performed and is negative for pertinent findings except as documented above in the HPI. - Constitutional Constitutional: no chills, no fever(s), no night sweats - EENT Eyes: no change in vision, no discharge, no pain, no photophobia Ears: no ear discharge, no ear pain, no tinnitus Nose, mouth and throat: no dysphagia, no nasal discharge, no neck pain, no sore throat - Cardiovascular Cardiovascular ROS IM: no chest pain, no diaphoresis, no dyspnea, no lightheadedness, no palpitations, no syncope - Respiratory Respiratory: no cough, no dyspnea, no wheezing, no excessive phlegm production - Gastrointestinal Gastrointestinal: no abdominal pain, no diarrhea, no hematemesis, no hematochezia, no melena, no nausea, no vomiting - Musculoskeletal Musculoskeletal ROS IM: no numbness, no tingling - Integumentary Integumentary IM: no rash, no unusual bruising - Neurological Neurological ROS: no confusion, no convulsions, no focal weakness, no numbness, no tingling, no tremor(s) - Hematologic/Lymphatic Hematologic/Lymphatic: no easy bruising - Constitutional Vitals: Temp Pulse Resp BP Pulse Ox 99.1 F 53 18 126/63 99 01/17/18 22:40 01/17/18 22:40 01/18/18 00:58 01/18/18 00:58 01/17/18 22:40 Exam: General: Alert and oriented Skin:Normal color, no rash, no lesions. HEENT:EOM, pupils equal, round and reactive. Cardiovascular:Normal S1 & S2, no rubs, murmurs or gallops. No JVD. Pulse regular. Lungs:Normal breath sounds, no wheezes or crackles. Abdomen:Soft, non-tender, no rigidity. Extremities: Left lower extremity edema noted around the left ankle. [place] are intact. There is red staining of the dressing. No evidence of purulence. Very tender to palpation but no surrounding erythema. Neurological:Normal cognition and motor skills. Pulses:Carotid and radial pulses normal +2. Rest of the physical exam is non contributory Internal Med - H&P Results - Labs CBC & Chem 7: 01/17/18 22:55 01/17/18 22:55 Labs: Short CBC 01/17/18 Range/Units 22:55 WBC 13.1 H (4.3-11.1) K/mcL Hgb 13.7 (12.9-16.9) g/dL Hct 40.0 (37.5-50.1) % Plt Count 197 (140-400) K/mcL Neutrophils # 7.2 (1.6-8.9) K/mcL BMP 01/17/18 22:55 Sodium 138 Potassium 3.8 Chloride 106 Carbon Dioxide 25 BUN 16 Creatinine 0.85 Glucose 92 Calcium 9.4 - Assessment and plan (1) Post-operative pain Current Visit: Yes Status: Acute Assessment and plan: Patient is postop day 2 status post ORIF of the left ankle following distal fibular fracture now with excruciating pain at the left ankle. Workup in the ED was negative for DVT and there is little evidence for compartment syndrome. Patient does have a mild leukocytosis of 13. At this time cannot rule out a postoperative infectious complication as it would be unusual to manifest this soon after the surgery and his white blood cell count may simply be reactive at this point. We will hold off antibiotics and blood cultures for now. Case was discussed with podiatry who will see the patient in the morning and requesting pain control overnight. (2) Leukocytosis Current Visit: Yes Status: Acute Assessment and plan: Possibly reactive in the setting of recent surgery. We will monitor for now. See above for details. Qualifiers: Leukocytosis type: unspecified Qualified Code(s): D72.829 - Elevated white blood cell count, unspecified (3) Hypertrophic obstructive cardiomyopathy (HOCM) Current Visit: No Status: Chronic Assessment and plan: Continue with home medications (4) DVT prophylaxis Current Visit: No Status: Acute Assessment and plan: Continue with Xarelto - Time Spent With Patient Total time spent is greater than 50% in coordination of care (as documented) at patient's floor/unit and/or counseling patient:
[2018-01-18] MEDS: OXYCODONE Oral CONC 10 MG/0.5 ML ORAL.SYG SL PRN ×5 (01:34→22:06)
[2018-01-18] MEDS: 0.9 % Sodium Chloride 1,000 ML IVC SCH ×2 (01:35→11:14)
[2018-01-18] MEDS: Ketorolac 30 MG/ML VIAL IVP PRN ×2 (04:30→11:14)
[2018-01-18 06:37] LABS: Basophils # 0.1 K/mcL (0.0-0.2); Basophils % 0.5 %; Eosinophils # 0.2 K/mcL (0.0-0.6); Eosinophils % 1.6 %; Hematocrit 35.4 % (37.5-50.1); Immature Granulocytes % 0.3 % (0-4); Lymphocytes # 4.1 K/mcL (0.6-4.6); Lymphocytes % 39.1 %; Mean Corpuscular HGB Conc 34.2 g/dL (31.6-35.5); Mean Corpuscular Hemoglobin 30.9 pg (28.0-33.3); Mean Corpuscular Volume 90.3 fL (83.0-100.0); Mean Platelet Volume 10.6 fL (9.4-12.4); Monocytes # 0.7 K/mcL (0.0-1.3); Monocytes % 6.9 %; Neutrophils # 5.4 K/mcL (1.6-8.9); Platelet Count 167 K/mcL (140-400); Red Blood Count 3.92 M/mcL (4.19-5.50); Red Cell Distribution Width 12.4 % (11.5-14.5); Segmented Neutrophils % 51.6 %
[2018-01-18 06:38] LABS: Hemoglobin 12.1 g/dL (12.9-16.9)
[2018-01-18 06:52] LABS: Alanine Aminotransferase 36 Units/L (7-52); Albumin 3.9 g/dL (3.5-5.7); Albumin/Globulin Ratio 1.7 (1.1-2.2); Alkaline Phosphatase 57 Units/L (34-104); Aspartate Amino Transferase 20 Units/L (13-39); BUN/Creatinine Ratio 23 (6-26); Bilirubin,Total 0.8 mg/dL (0.3-1.0); Blood Urea Nitrogen 18 mg/dL (6-20); Calcium 8.8 mg/dL (8.6-10.3); Carbon Dioxide 24 mEq/L (23-29); Chloride 107 mEq/L (98-107); Globulin 2.3 g/dL (2.4-3.5); Glucose 90 mg/dL (70-105); Osmolality,Calculated 285 (280-300); Potassium 3.6 mEq/L (3.5-5.1); Sodium 137 mEq/L (136-145); Total Protein 6.2 g/dL (6.4-8.9); eGFR For Non-African Americans > 60 (> 60)
[2018-01-18] MEDS: *HR* Rivaroxaban 10 MG TABLET PO SCH (08:04)
[2018-01-18] MEDS: Gabapentin 300 MG CAPSULE PO SCH ×2 (14:39→22:06)
--- NOTE | 2018-01-18 15:12 | Podiatry Consult Note ---
Date of Encounter: 01/18/18 Time of Encounter: 12:00 Assessment and Plan (1) Post-operative pain Current visit: Yes Status: Acute (2) Fracture of left fibula Current visit: Yes Status: Acute s/p open reduction internal fixation following a distal fracture of the left fibula now postop day 2 per . Plan: Dressing removed- incision line and entire LLE examined Pain appears to be related to edema of LLE States they have not been working to elevate or ice extremity LLE is to be elevated above heart level at all times Start ICE 20 on/ 20 off surrounding ankle and behind left knee- Start Gabapentin 300mg TID for pain control at this time No appearance of infection noted to incision line Pulses palpable, sensation intact No concern of compartment syndrome at this time Will obtain imagining to rule out any osseous abnormality Will need to follow up in podiatry clinic 1 week after discharge, likely already has appointment, please confirm with patient prior to discharge. Cleansed wound with saline Painted with betadine Adaptic 4x4, cast padding, posterior spint and reinaldo applied Keep clean dry and intact Will continue to monitor. Call with any concerns or changes. Qualifiers: Encounter type: subsequent encounter Fibula location: distal Fracture type: closed Fracture morphology: other fracture Fracture healing: with routine healing Qualified Code(s): S82.832D - Other fracture of upper and lower end of left fibula, subsequent encounter for closed fracture with routine healing History of Present Illness HPI: glo Velazquez is a 27 year old male with a significant past medical history atrial fibrillation, hypertrophic obstructive cardiomyopathy and open reduction internal fixation following a distal fracture of the left fibula now postop day 2 per . Patient complains of severe pain to left ankle on arrival. States that he has "been in tears" states that pain started as soon as the block wore off. States oxycodone is not touching the pain. Patient reports pain is most pronounced at the ankle but extends proximally towards albright. Denies any pain or tenderness to calf. An ultrasound was performed to rule out DVT which was negative. Patient denies any fevers, n/v or diarrhea. States he is chilling some but believes it is from the pain. Patients at bedside. Dressing cdi on arrival. Past Med Surg Social Fam HX - Past Medical History Medical history: cardiomyopathy Additional medical history: chest pain Psychiatric history: no psych history - Past Surgical History Surgical History: vasectomy Additional surgical history: L leg surgery - Social History Smoking Status: Current some day smoker Smokeless Tobacco Status: No Alcohol use: occasionally Drug use: none - Family History Mother Adopted: No Family Member Ethnicity: Non- Living Status: Still Living Hx Family Cardiac Disorders: Yes (Hypertension) Hx Family Respiratory Disorders: No Hx Family Cancer: No Hx Family GI Disorders: No Hx Family Endocrine Disorder: Yes (Diabetes) Hx Family Neuromuscular Disorders: No Hx Family Neurologic Disorders: No Hx Family HEENT Disorders: No Hx Family Autoimmune Disorders: No Sister Adopted: No Family Member Ethnicity: Non- Living Status: Still Living Hx Family Cardiac Disorders: No Hx Family Respiratory Disorders: No Hx Family Cancer: No Hx Family GI Disorders: No Hx Family Endocrine Disorder: No Hx Family Neuromuscular Disorders: No Hx Family Neurologic Disorders: No Hx Family HEENT Disorders: No Hx Family Autoimmune Disorders: No Brother Adopted: No Family Member Ethnicity: Non- Living Status: Still Living Hx Family Cardiac Disorders: No Hx Family Respiratory Disorders: No Hx Family Cancer: No Hx Family GI Disorders: No Hx Family Endocrine Disorder: No Hx Family Neuromuscular Disorders: No Hx Family Neurologic Disorders: No Hx Family HEENT Disorders: No Hx Family Autoimmune Disorders: No Medications and Allergies Metoprolol [Lopressor] 50 mg PO BID 06/12/17 [History] Ondansetron ODT [Zofran ODT] 4 mg SL Q8HR PRN #12 tab.rapdis 01/15/18 [Rx] Oxycodone HCl/Acetaminophen [Percocet 5-325 mg Tablet] 1 each PO Q4-6H PRN 5 Days #30 tablet 01/15/18 [Rx] Rivaroxaban [Xarelto] 10 mg PO DAILY #20 tablet 01/15/18 [Rx] Allergy/AdvReac Type Severity Reaction Status Date / Time No Known Allergies Allergy Verified 01/09/18 03:33 All Systems Reviewed: as per HPI - Constitutional Additional comments: as per HPI Physical Exam - Constitutional Vitals: Temp Pulse Resp BP Pulse Ox 98.2 F 48 14 122/66 95 01/18/18 11:10 01/18/18 11:10 01/18/18 11:10 01/18/18 11:10 01/18/18 11:10 Exam: Awake alert and oriented Warm toes to tibia Cap refill <3 seconds Movement intact to toes Sensation intact to foot to light touch No calf pain with manual compression Pulses palpable DP/PT No erythema or warmth noted There is noted edema of entire LLE starting mid tibia extending onto foot and surrounding surgical incision line- likely cause of patients pain No appearance of infection Incision line well approximated Scant bloody drainage noted No odor Painful to palpation. [place] intact to incision line. Results - Labs Result Diagrams: 01/18/18 06:09 01/18/18 06:09 Labs: Abnormal lab results RBC 3.92 M/mcL (4.19-5.50) L 01/18/18 06:09 Hgb 12.1 g/dL (12.9-16.9) L D 01/18/18 06:09 Hct 35.4 % (37.5-50.1) L 01/18/18 06:09 PT 13.8 Seconds (9.4-12.1) H 01/17/18 22:55 Serum Total Protein 6.2 g/dL (6.4-8.9) L 01/18/18 06:09 Globulin 2.3 g/dL (2.4-3.5) L 01/18/18 06:09 H & H 01/17/18 01/18/18 Range/Units 22:55 06:09 Hgb 13.7 12.1 L D (12.9-16.9) g/dL Hct 40.0 35.4 L (37.5-50.1) % All other labs normal. Consult Discharge Plan - Plan Referrals: NONE,PCP [Primary Care Provider] -
[2018-01-18] MEDS ORDERED: OXYCODONE Oral CONC 10 MG/0.5 ML ORAL.SYG SL ONE (17:25)
--- NOTE | 2018-01-18 23:41 | Internal Med Progress Note ---
Hospitalist Progress Note - Encounter Date of Encounter: 01/18/18 Time of Encounter: 18:00 - Subjective Interval History: SUBJECTIVE: The patient complains of severe pain in the area of left ankle. He had surgery to repair the distal fracture of left fibula a few days ago. He is readmitted because of the pain. IV Toradol at 30 mg and by mouth oxycodone at 10 mg does not help the pain. Denies chest pain and difficulty breathing. Denies abdominal pain, nausea and vomiting. He has normal urination. OBJECTIVE: Skin: Free of rash and discoloration. Musculoskeletal: Her description of left ankle wound see last podiatry note. ENMT: Oral/pharyngeal mucosa is normal in appearance. Eyes: Sclera is white. There is no discharge from eyes. Respiratory: Normal breath sounds; no crackles or wheezes. CV: Heart is regular; no gallop or murmur. GI: Abdomen is soft and not tender. There is no palpable mass or visceromegaly. Neuro: There is no focal deficits. ADDITIONAL DATA: CBC shows hemoglobin of 12.1 with WBC of 10.4 thousand; 13.1 thousand at a dmission. CMP is normal. ASSESSMENT AND PLAN: Postoperative pain. Status post ORIF of left ankle. See notes from podiatry. They recommend elevation of left lower leg with icing applied to left ankle area. The patient had good response to 20 mg of oral oxycodone. We will make it every 4 hours, if needed. Leukocytosis. Likely reactive. Subsided. Hypertrophic obstructive cardiomyopathy. This problem is being evaluated by outpatient cardiology. Paroxysmal atrial fibrillation. Currently normal sinus rhythm. The patient will have cardiac monitoring started after this admission. - Exam Vitals: Temp Pulse Resp BP Pulse Ox 98.1 F 60 16 117/71 95 01/18/18 19:20 01/18/18 19:20 01/18/18 19:20 01/18/18 19:20 01/18/18 19:20 Exam: xx - Assessment and Plan (1) Post-operative pain Current Visit: Yes Status: Acute (2) Leukocytosis Current Visit: Yes Status: Acute (3) Hypertrophic obstructive cardiomyopathy (HOCM) Current Visit: No Status: Chronic (4) PAF (paroxysmal atrial fibrillation) Current Visit: Yes Status: Acute - Time Spent with Patient Total time spent is greater than 50% in coordination of care (as documented) at patient's floor/unit and/or counseling patient: Internal Medicine: Result - Labs CBC & Chem 7: 01/18/18 06:09 01/18/18 06:09 Labs: Short CBC 01/18/18 Range/Units 06:09 WBC 10.4 (4.3-11.1) K/mcL Hgb 12.1 L D (12.9-16.9) g/dL Hct 35.4 L (37.5-50.1) % Plt Count 167 (140-400) K/mcL Neutrophils # 5.4 (1.6-8.9) K/mcL BMP 01/18/18 06:09 Sodium 137 Potassium 3.6 Chloride 107 Carbon Dioxide 24 BUN 18 Creatinine 0.78 Glucose 90 Calcium 8.8 Liver Function 01/18/18 Range/Units 06:09 Total Bilirubin 0.8 (0.3-1.0) mg/dL AST 20 (13-39) Units/L ALT 36 (7-52) Units/L Alkaline Phosphatase 57 (34-104) Units/L Albumin 3.9 (3.5-5.7) g/dL - ABG Interpretation ABG results: PT/INR, D-dimer PT 13.8 Seconds (9.4-12.1) H 01/17/18 22:55 - Impressions Impressions Ankle X-Ray 01/18/18 13:57 IMPRESSION: ORIF fibular fracture without evidence of hardware complication. D/ / 01/18/2018 15:37:52 [facility]els [facility] Interpreting Provider: Lalo Michaels MD Consult Discharge Plan - Plan Referrals: NONE,PCP [Primary Care Provider] - (2) Leukocytosis Qualifiers: Leukocytosis type: unspecified Qualified Code(s): D72.829 - Elevated white blood cell count, unspecified
[2018-01-19] MEDS: OXYCODONE Oral CONC 10 MG/0.5 ML ORAL.SYG SL PRN ×3 (02:31→12:45)
[2018-01-19] MEDS: Gabapentin 300 MG CAPSULE PO SCH ×3 (08:35→21:15)
[2018-01-19] MEDS: *HR* Rivaroxaban 10 MG TABLET PO SCH (08:35)
--- NOTE | 2018-01-19 09:30 | Internal Med Progress Note ---
<Kayleigh Montoya - Last Filed: 01/19/18 13:17> Hospitalist Progress Note - Encounter Date of Encounter: 01/19/18 Time of Encounter: 07:30 - Subjective Interval History: Mr. Velazquez is a 27 year old male with a past medical history of atrial fibrillation, hypertrophic obstructive cardiomyopathy, and fracture of L distal fibula who presented to the ED on 01/17/18 with severe pain of his ankle after ORIF two days prior. Today, patient appears to be in mild to moderate distress 2/2 pain in LLE, but he states that his pain is better than it has been throughout his hospital stay. He rates his pain a 5 or 6/10 in severity. He is no longer experiencing nausea, and he states that he is hungry. He has not had a bowel movement yet, but he also hasn't eaten anything up to this point. Patient has had some bradycardia, with his HR from last night through this morning ranging from 50 to 68. ROS: all systems negative other than pain mentioned above. Podiatry was consulted and saw patient yesterday. See recommendations below. PO Tylenol 650 mg q6hr PRN was ordered for mild pain. PT/OT was consulted to get patient moving and out of bed. - Exam Vitals: Temp Pulse Resp BP Pulse Ox 98 F 64 16 118/73 95 01/19/18 06:47 01/19/18 06:47 01/19/18 06:47 01/19/18 06:47 01/19/18 06:47 Exam: General: alert, in mild to moderate distress due to pain. Head: atraumatic, normocephalic Eyes: pupils reactive and round, sclera non-icteric CV: RRR. Murmur present. Resp: CTA bilaterally. No wheezes, rhonchi, or rales. Abd: BSx4. No tenderness or guarding. Extremities: LLE wrapped. Patient was able to wiggle his toes on that side; did not check R side. No edema on RLE; did not check LLE for edema due to pain and it being wrapped. - Assessment and Plan (1) Post-operative pain Current Visit: Yes Status: Acute Assessment and Plan: Patient presented to ED on 01/17 with severe post-op pain after nerve block wore off s/p ORIF of distal fibula fracture. Podiatry was consulted and saw patient yesterday. No signs of infection around the incision. They stated that the pain appears to be related to edema of LLE. Recommended gabapentin for pain. - elevation of LLE above heart at all times and ice 20 on/20 off per podiatry's recommendations - oxycodone SL Q4hr PRN for severe pain - gabapentin 300 mg PO TID for pain - tylenol 650 mg PO Q6hr PRN for mild pain (2) Fracture of left fibula Current Visit: Yes Status: Acute Assessment and Plan: Fracture of L distal fibula. Repaired with ORIF on 01/15/18. Follow with ortho. (3) Hypertrophic obstructive cardiomyopathy (HOCM) Current Visit: No Status: Chronic Assessment and Plan: Continue following with outpatient cardiology. Continue with home medications. (4) PAF (paroxysmal atrial fibrillation) Current Visit: Yes Status: Acute Assessment and Plan: Normal sinus rhythm this morning. The patient will have cardiac monitoring started after this admission DVT Prophylaxis: Continue with Xarelto - Time Spent with Patient Total time spent is greater than 50% in coordination of care (as documented) at patient's floor/unit and/or counseling patient: less than 15 minutes Internal Medicine: Result - Labs CBC & Chem 7: 01/18/18 06:09 01/18/18 06:09 - ABG Interpretation ABG results: PT/INR, D-dimer PT 13.8 Seconds (9.4-12.1) H 01/17/18 22:55 - Impressions Impressions Ankle X-Ray 01/18/18 13:57 IMPRESSION: ORIF fibular fracture without evidence of hardware complication. D/ / 01/18/2018 15:37:52 [facility] Interpreting Provider: Lalo Michaels MD Consult Discharge Plan - Plan Referrals: NONE,PCP [Primary Care Provider] - <Ana Paula Savage - Last Filed: 01/19/18 17:27> Hospitalist Progress Note - Encounter Date of Encounter: 01/19/18 - Exam Vitals: Temp Pulse Resp BP Pulse Ox 98.8 F 59 16 123/74 98 01/19/18 15:46 01/19/18 15:46 01/19/18 15:46 01/19/18 15:46 01/19/18 15:46 - Assessment and Plan (1) Hypertrophic obstructive cardiomyopathy (HOCM) Current Visit: No Status: Chronic (2) Post-operative pain Current Visit: Yes Status: Acute (3) Leukocytosis Current Visit: Yes Status: Acute (4) PAF (paroxysmal atrial fibrillation) Current Visit: Yes Status: Acute - Time Spent with Patient Total time spent is greater than 50% in coordination of care (as documented) at patient's floor/unit and/or counseling patient: Internal Medicine: Result - Labs CBC & Chem 7: 01/18/18 06:09 01/18/18 06:09 - ABG Interpretation ABG results: PT/INR, D-dimer PT 13.8 Seconds (9.4-12.1) H 01/17/18 22:55 - Impressions Impressions Ankle X-Ray 01/18/18 13:57 IMPRESSION: ORIF fibular fracture without evidence of hardware complication. D/ / 01/18/2018 15:37:52 Lalo Michaels MD / [facility] Interpreting Provider: Lalo Michaels MD - Attending Attestation The history, physical exam, and medical decision making was performed by medical student Long either while I was physically present and actively involved or I personally re-performed the exam and medical decision making. I have verified the accuracy of the medical student's documentation with regards to the history, physical exam findings, and medical decision making. Mr Velazquez was admitted for post op pain s/p open reduction internal fixation following a distal fracture of the left fibula. He is pod 3 today. Podiatry is following. We are working on pain control and there is no apparent compartment syndrome or infectious cause to worsened pain. awake, pain beginning to imprve since admit, localized now to left heel. no fevers, chills, nausea or emesis. gen- alert, awake,appears stated age eyes- pupils equal round cv- reg rate and rhythm, normal s1,s2, no murmurs appreciated lungs- ctabl, no wheezing, rhonchi or crackles, normal resp effort on ra msk- left leg dressing in place, ecchymosis above reinaldo wrap left proximal leg below knee but knee joint unremarkable neuro- AAOx3, sensation to toes intact and equal Post op Pain, pod 3 open reduction internal fixation following a distal fracture of the left fibula -podiatry following -add gabapentin for 7 days for pain control -will wean opiates -WB and care instructions as per podiatry, and ok to dc to home when pain better controlled as no signs of compartment syndrome or infectious process, has fu dea in place -on xarelto for afib/contfor vte ppx as well -pt cleared for home with crutches leukocytosis- resolved without intervention, likely reactive post op hx afib, currently nsr, cont home meds including xarelto <Kayleigh Montoya M - Last Filed: 01/19/18 13:17> (2) Fracture of left fibula Qualifiers: Encounter type: subsequent encounter Fibula location: distal Fracture type: closed Fracture morphology: other fracture Fracture healing: with routine healing Qualified Code(s): S82.832D - Other fracture of upper and lower end of left fibula, subsequent encounter for closed fracture with routine healing <Ana Paual Savage M - Last Filed: 01/19/18 17:27> (3) Leukocytosis Qualifiers: Leukocytosis type: unspecified Qualified Code(s): D72.829 - Elevated white blood cell count, unspecified
[2018-01-19] MEDS: Acetaminophen 325 MG TABLET PO PRN ×2 (09:39→18:46)
--- NOTE | 2018-01-19 14:48 | Podiatry Progress Note ---
Date of Encounter: 01/19/18 Time of Encounter: 12:00 - Assessment and Plan (1) Post-operative pain Current Visit: Yes Status: Acute (2) Fracture of left fibula Current Visit: Yes Status: Acute s/p open reduction internal fixation following a distal fracture of the left fibula now postop day 3 per . Plan: Patient reports decreased pain since yesterday's exam Patient may be discharged when pain controlled and cleared per internal medicine No findings on exam consistent with compartment syndrome or infectious process May be discharged on Gabapentin 300mg TID x7 days for pain control Leave dressing intact NWB to LLE Elevate and ICE at home as needed Patient to continue xarelto as prescribed post op for prevention of DVT Patient states he needs FMLA paperwork from office- let staffing know of patients concerns in office. Patient states he has appointment in office on Thursday, if not please make appointment to be seen Thursday or Thursday in podiatry clinic prior to discharge Patient to call office with any fevers chills n/v fls or trauma to foot. Qualifiers: Encounter type: subsequent encounter Fibula location: distal Fracture type: closed Fracture morphology: other fracture Fracture healing: with routine healing Qualified Code(s): S82.832D - Other fracture of upper and lower end of left fibula, subsequent encounter for closed fracture with routine healing Subjective Interval history: Following patient in regards to reported post operative pain following ORIF of the left ankle. Patient reports he is doing somewhat better today. reports pain is 4/10 and his appetite has returned. Patient has LLE elevated on arrival. Has been using ICE elevation and compression and was started on gabapentin 300mg TID for pain control. Patient denies any calf pain, denies any fevers, chills, n/v or fls. Objective - Vital Signs Vital Signs: Vital Signs Temp Pulse Resp BP Pulse Ox 01/19/18 10:15 98.4 F 68 16 123/76 97 01/19/18 06:47 98 F 64 16 118/73 95 01/19/18 04:10 98.1 F 57 16 116/69 93 01/18/18 23:42 98.5 F 50 16 120/74 97 01/18/18 19:20 98.1 F 60 16 117/71 95 01/18/18 16:32 98.6 F 56 16 135/75 96 Intake and Output 01/18/18 01/19/18 01/19/18 23:59 07:59 15:59 Intake Total 400 / 400 Output Total 1675 / 1675 750 / 750 350 / 350 Balance -1675 / -1675 -750 / -750 50 / 50 Intake: Oral 400 / 400 Output: Urine 1675 / 1675 750 / 750 350 / 350 Other: Meal Lunch Percent of Meal Consumed 90% Weight 115.666 kg Patient Weight 01/19/18 23:59 Weight 115.666 kg - Exam Exam: Awake, alert and oriented Will leave dressing intact at this time Posterior splint clean dry and intact Toes warm to touch, cap refill <3seconds movement of toes intact No calf pain with manual compression - Lab Result Diagrams: 01/18/18 06:09 01/18/18 06:09 Labs: Abnormal lab results RBC 3.92 M/mcL (4.19-5.50) L 01/18/18 06:09 Hgb 12.1 g/dL (12.9-16.9) L D 01/18/18 06:09 Hct 35.4 % (37.5-50.1) L 01/18/18 06:09 PT 13.8 Seconds (9.4-12.1) H 01/17/18 22:55 Serum Total Protein 6.2 g/dL (6.4-8.9) L 01/18/18 06:09 Globulin 2.3 g/dL (2.4-3.5) L 01/18/18 06:09 Consult Discharge Plan - Plan Referrals: NONE,PCP [Primary Care Provider] -
[2018-01-19] MEDS ORDERED: OXYCODONE Oral CONC 10 MG/0.5 ML ORAL.SYG SL PRN (17:17)
[2018-01-19] MEDS ORDERED: OXYCODONE Oral CONC 10 MG/0.5 ML ORAL.SYG SL ONE (22:03)
[2018-01-20 04:44] LABS: Basophils % 0.4 %; Eosinophils # 0.2 K/mcL (0.0-0.6); Eosinophils % 2.2 %; Hematocrit 35.8 % (37.5-50.1); Hemoglobin 13.1 g/dL (12.9-16.9); Immature Granulocytes % 0.4 % (0-4); Lymphocytes # 2.9 K/mcL (0.6-4.6); Mean Corpuscular HGB Conc 36.6 g/dL (31.6-35.5); Mean Corpuscular Hemoglobin 31.2 pg (28.0-33.3); Mean Corpuscular Volume 85.2 fL (83.0-100.0); Mean Platelet Volume 10.3 fL (9.4-12.4); Monocytes # 0.8 K/mcL (0.0-1.3); Monocytes % 8.2 %; Neutrophils # 5.2 K/mcL (1.6-8.9); Platelet Count 179 K/mcL (140-400); Red Cell Distribution Width 11.7 % (11.5-14.5); Segmented Neutrophils % 56.8 %
[2018-01-20] MEDS: *HR* Rivaroxaban 10 MG TABLET PO SCH (09:01)
[2018-01-20] MEDS: Acetaminophen 325 MG TABLET PO PRN (09:01)
[2018-01-20] MEDS: Gabapentin 300 MG CAPSULE PO SCH (09:01)
--- NOTE | 2018-01-20 09:18 | Discharge Summary ---
<Kayleigh Montoya - Last Filed: 01/20/18 11:01> - NOTES TO OUTPATIENT PROVIDER Notes to Outpatient Provider: Mr. Velazquez is a 27 year old male with a past medical history of atrial fibrillation, hypertrophic obstructive cardiomyopathy, and fracture of L distal fibula who presented to the ED on 01/17/18 with severe pain of his ankle after ORIF two days prior. The pain intensified when nerve block wore off s/p ORIF. Clinical exam and imaging showed no evidence of infection, compartment syndrome, or VTE. Podiatry followed through hospital stay and attributed pain to be related to edema of LLE. On discharge, gabapentin 300 mg PO TID X 7 days for pain. Patient on crutches and will follow up with podiatry on Thursday, 01/22. Date of Encounter: 01/20/18 Time of Encounter: 09:00 - Discharge Diagnosis (1) Post-operative pain Priority: Primary Status: Acute Assessment and Plan: Patient presented to ED on 01/17 with severe post-op pain after nerve block wore off s/p ORIF of distal fibula fracture. Venous duplex showed normal compressibility and patency of superficial and deep veins of left extremity. Ankle x-ray on 01/18 showed no evidence of hardware complication. Followed by podiatry. No signs of compartment syndrome or infection. They stated that the pain appears to be related to edema of LLE. Today, patient states that pain is back up to 7 or 8/10 in severity. - gabapentin 300 mg PO TID X 7 days for pain - elevate LLE and ice as needed - leave dressing intact - non-weight bearing on LLE; use crutches - Follow up with podiatry as outpatient (2) Fracture of left fibula Priority: Secondary Status: Acute Assessment and Plan: Fracture of L distal fibula. Repaired with ORIF on 01/15/18. Follow with podiatry. Both PT and OT saw patient and stated that there are no PT or OT needs at this time. Qualifiers: Encounter type: subsequent encounter Fibula location: distal Fracture type: closed Fracture morphology: other fracture Fracture healing: with routine healing Qualified Code(s): S82.832D - Other fracture of upper and lower end of left fibula, subsequent encounter for closed fracture with routine healing (3) Hypertrophic obstructive cardiomyopathy (HOCM) Priority: Secondary Status: Chronic Assessment and Plan: Continue following with outpatient cardiology. Continue with home medications. (4) PAF (paroxysmal atrial fibrillation) Priority: Secondary Status: Chronic Assessment and Plan: Normal sinus rhythm this morning. The patient will have cardiac monitoring started after this admission. Hospital course: Mr. Velazquez is a 27 year old male with a past medical history of atrial fibrillation, hypertrophic obstructive cardiomyopathy, and fracture of L distal fibula who presented to the ED on 01/17/18 with severe pain of his ankle after ORIF two days prior. The pain intensified when nerve block wore off s/p ORIF. He reported nausea and feeling like he might pass out secondary to the pain. Venous duplex and ankle x-ray showed normal blood flow and no hardware complication, respectively. HR was sometimes bradycardic in the 50s, likely due to metoprolol, but all other vital signs were normal. Patient had mild leukocytosis of 13.1 on first day, but leukocytosis was gone by second day of stay. Podiatry followed patient throughout his hospital stay and found no signs of compartment syndrome or infection. Their recommendations for discharge are listed in A/P. Patient to follow up with podiatry on Thursday, 01/22. Pain was 10/10 on admission, then better controlled on 01/19 and down to 4/10 when on oxycodone SL 20mg Q4hr PRN. Pain back up to 8/10 this morning after oxycodone SL reduced to 20 mg Q12hr. - Time Spent with Patient Total time spent providing and/or coordinating discharge services: - Discharge Medications Prescriptions: Gabapentin [Neurontin] 300 mg PO TID #21 capsule HYDROcodone/Acet 5/325 mg [[place] 5-325 mg] 1 tab PO Q12H PRN 4 Days #8 tab PRN Reason: Severe Pain Home Medications: Metoprolol [Lopressor] 50 mg PO BID 06/12/17 [History] Ondansetron ODT [Zofran ODT] 4 mg SL Q8HR PRN #12 tab.rapdis 01/15/18 [Rx] Rivaroxaban [Xarelto] 10 mg PO DAILY #20 tablet 01/15/18 [Rx] Acetaminophen [Tylenol] 650 mg PO Q6HR PRN tablet 01/20/18 [Rx] Gabapentin [Neurontin] 300 mg PO TID #21 capsule 01/20/18 [Rx] HYDROcodone/Acet 5/325 mg [[place] 5-325 mg] 1 tab PO Q12H PRN 4 Days #8 tab 01/20/18 [Rx] Allergies/Adverse Reactions: Allergy/AdvReac Type Severity Reaction Status Date / Time No Known Allergies Allergy Verified 01/09/18 03:33 Date of admission: 01/18/18 00:38 Primary care physician: PCP NONE Consults: 01/18/18 00:24 Consult to Podiatry [CONS] Stat Consulting Provider: [facility] Reason for Consult: POST OP (LEFT ANKLE ORIF) PAIN Time Notified: 00:25 Call Completed: Yes Discharging clinician: Ana Paula Savage Anticipated date of discharge: 01/20/18 - Constitutional Vitals: Temp Pulse Resp BP Pulse Ox 98.2 F 74 16 124/69 95 01/20/18 06:50 01/20/18 06:50 01/20/18 06:50 01/20/18 06:50 01/20/18 06:50 General appearance: Present: cooperative, mild distress, answers questions appropriately Exam: General: alert, in mild to moderate distress due to pain. Head: atraumatic, normocephalic Eyes: pupils reactive and round, sclera non-icteric CV: RRR. Murmur present. Resp: CTA bilaterally. No wheezes, rhonchi, or rales. Abd: BSx4. No tenderness or guarding. Extremities: Eccymosis on medial LLE up to level of knee. LLE wrapped. No edema on RLE; did not check LLE for edema due to pain, and it being wrapped. - Head Head exam: Present: atraumatic, normocephalic - Eye Eye exam: Present: normal appearance, PERRL - Respiratory Respiratory exam: Present: CTAB. Absent: rales, rhonchi, wheezes - Cardiovascular Cardiovascular exam: Present: RRR, +S1, +S2, systolic murmur - GI/Abdominal GI/Abdominal exam: Present: normal bowel sounds, soft. Absent: guarding, mass - Expanded Lower Extremities Exam Lower Leg exam: Present: ecchymosis (secondary to distal fibula fracture) - Patient Status Disposition: Home, Self-Care Condition: Good - Discharge Instructions Instructions: Open Reduction and Internal Fixation of a Leg Fracture in Children (DC) Follow Up With: Jag Miller DPM [Partnered Physician] - (An appointment has been requested. The offiece will contact you at home to schedule an appointment. ) NONE,PCP [Primary Care Provider] - <Duane Mullins - Last Filed: 01/20/18 12:03> Date of Encounter: 01/20/18 - Discharge Diagnosis (1) Hypertrophic obstructive cardiomyopathy (HOCM) Status: Chronic (2) Post-operative pain Status: Acute (3) Leukocytosis Status: Acute Qualifiers: Leukocytosis type: unspecified Qualified Code(s): D72.829 - Elevated white blood cell count, unspecified (4) PAF (paroxysmal atrial fibrillation) Status: Chronic Hospital course: Mr. Velazquez is a 27 year old male - Time Spent with Patient Total time spent providing and/or coordinating discharge services: Date of admission: 01/18/18 00:38 Primary care physician: PCP NONE Consults: 01/18/18 00:24 Consult to Podiatry [CONS] Stat Consulting Provider: [facility] Reason for Consult: POST OP (LEFT ANKLE ORIF) PAIN Time Notified: 00:25 Call Completed: Yes - Constitutional Vitals: Temp Pulse Resp BP Pulse Ox 98.3 F 73 18 121/69 97 01/20/18 11:44 01/20/18 11:44 01/20/18 11:44 01/20/18 11:44 01/20/18 11:44 <Ana Paula Savage - Last Filed: 01/20/18 12:45> Date of Encounter: 01/20/18 - Discharge Diagnosis (1) Hypertrophic obstructive cardiomyopathy (HOCM) Status: Chronic (2) Post-operative pain Status: Acute (3) Leukocytosis Status: Acute Qualifiers: Leukocytosis type: unspecified Qualified Code(s): D72.829 - Elevated white blood cell count, unspecified (4) PAF (paroxysmal atrial fibrillation) Status: Chronic Hospital course: Mr. Velazquez is a 27 year old male - Time Spent with Patient Total time spent providing and/or coordinating discharge services: Less than 30 minutes Date of admission: 01/18/18 00:38 Primary care physician: PCP NONE Consults: 01/18/18 00:24 Consult to Podiatry [CONS] Stat Consulting Provider: [facility] Reason for Consult: POST OP (LEFT ANKLE ORIF) PAIN Time Notified: 00:25 Call Completed: Yes - Constitutional Vitals: Temp Pulse Resp BP Pulse Ox 98.3 F 73 18 121/69 97 01/20/18 11:44 01/20/18 11:44 01/20/18 11:44 01/20/18 11:44 01/20/18 11:44 - Patient Status Overall status at discharge: patient is progressing back to baseline - Diet and Activity Activity: other (Non weight Bearing Left Lower Extremity) Diet: advance to your usual diet - Attending Attestation The history, physical exam, and medical decision making was performed by medical student Long either while I was physically present and actively involved or I personally re-performed the exam and medical decision making. I have verified the accuracy of the medical student's documentation with regards to the history, physical exam findings, and medical decision making. Mr Velazquez was admitted for post op pain s/p open reduction internal fixation following a distal fracture of the left fibula tow days prior. Podiatry followed and found no indication of post op infectious process or compartment syndrome. They recommended gabapentin tid x7 days and prior to discharge opiate med recs were given with rx given to pt on dc and plan to follow up at his monday 01/22 appt for further care and pain meds as appropriate at that time. His chronci medical conditions were stable throughout observation. He is being discharged to home in stable condition. awake, pain overnight, currently tolerable pain. no fevers, chills, nausea or emesis. NWB on that extremity and cleared by Pt for home with crutches. He has no questions or concerns on review of dc plan. gen- alert, awake,appears stated age eyes- pupils equal round cv- reg rate and rhythm, normal s1,s2, no murmurs appreciated lungs- ctabl, no wheezing, rhonchi or crackles, normal resp effort on ra msk- left leg dressing in place, ecchymosis above reinaldo wrap left proximal leg below knee but knee joint unremarkable neuro- AAOx3, sensation to toes intact and equal Post op Pain, s/p open reduction internal fixation following a distal fracture of the left fibula 2 days prior to presentation, having varying degrees of pain at discharge -podiatry followed and post op care including pain med and pain control recs were obtained from podiatry team -add gabapentin for 7 days for pain control, percocet prn severe pain 4d supply given -WB and care instructions as per podiatry -cleared by pt for home with crutches Leave dressing intact NWB to LLE Elevate and ICE at home as needed Patient to continue xarelto as prescribed post op for prevention of DVT 01/22 podiatry follow up appt in place leukocytosis- resolved without intervention, likely reactive post op hx afib, currently nsr, cont home meds including xarelto he may cont home meds rx for gabapentin and percocet dc to home in stable condition time spent on discharge 25 minutes
[2018-01-20 11:44] VITALS: BP 121/69
== END 2018-01-20 12:31 | disposition home or self-care (01) ==
LOC: EMEROOARM 22:30 → 3NENU 22:30 → SUATTDRO 01-18 00:38 → 3NENU 01-18 01:28 → 3BNU 01-20 04:00
PROVIDERS: ADMIT Internal Medicine; ATTEND Internal Medicine